=== PATIENT | female | born 1970 | race Caucasian/White ===

== ENCOUNTER → 2017-05-04 | Outpatient (CLI) | payer SELFPAY ==
[~2017-05-04] MED LIST: MECL-124 PO; SCOP1PAT TD
--- NOTE | 2017-05-04 14:21 | Diagnostic Imaging Report ---
INDICATION: Pelvic pain. FINDINGS: The uterus measures 8 x 4.8 x 4.3 cm. The endometrial stripe is 6 mm. There are few scattered calcifications within the endometrial lining. The right ovary measures 1.4 x 1.8 x 2.5 cm. The left ovary measures 3.6 x 1.7 x 1.9 cm. Normal blood flow to both ovaries with multiple follicular cysts bilaterally. No free fluid. IMPRESSION: No abnormalities demonstrated with bilateral follicular cysts with no dominant cyst or free fluid. Dictated by: Dictated on workstation # [id number]
== END ==
LOC: RAD 13:08
PROVIDERS: ATTEND Nurse Practitioner Family
DX: R10.2 Pelvic and perineal pain (principal)
CPT/HCPCS: 76830; 76856

== ENCOUNTER → 2017-06-26 | Outpatient (CLI) | payer OTHER | LOC: CARD 11:20 | PROVIDERS: ATTEND Internal Medicine Cardiovascular Disease | DX: I10 Essential (primary) hypertension (principal) | CPT/HCPCS: 93306 ==

== ENCOUNTER → 2017-07-02 | Outpatient (CLI) | payer OTHER | LOC: CARD 09:45 | PROVIDERS: ATTEND Internal Medicine Cardiovascular Disease | DX: I10 Essential (primary) hypertension (principal) | CPT/HCPCS: 93351 ==

== ENCOUNTER 2017-07-12 10:13 | Outpatient (RCR) | payer OTHER | END 2017-08-18 | disposition home or self-care (01) | LOC: CARD 10:13 | PROVIDERS: ATTEND Physician Assistant | DX: I35.0 Nonrheumatic aortic (valve) stenosis (principal); I10 Essential (primary) hypertension; E78.2 Mixed hyperlipidemia; Z72.0 Tobacco use | CPT/HCPCS: 93225; 93226 ==

== ENCOUNTER 2018-01-09 07:53 | Day surgery (SDC) | payer SELFPAY ==
[~2018-01-09] VITALS: Ht 162.6 cm; Wt 61.2 kg
[2018-01-09] VITALS (12 sets, daily range): BP systolic 105–153; BP diastolic 59–86
--- OUTSIDE RECORDS SUMMARY | 2018-01-09 07:57 | XMS REPORT | Continuity of Care Document ---
Author Author [employer] Organization [facility] Address Unknown Phone Unavailable Care Team Providers Care Riding Instructor Name Role Phone [employer] Unavailable Unavailable Problems Medications Allergies, Adverse Reactions, Alerts Immunizations Results Vital Signs Encounters Location Location Details Encounter Type Encounter Number Reason For Visit Attending Provider ADM Date DC Date Status Source O Active [facility] Procedures Plan of Care Social History Assessment and Plan Family History Advance Directives Functional Status
--- OUTSIDE RECORDS SUMMARY | 2018-01-09 07:57 | XMS REPORT | Encounter Summary ---
Author Author [facility] Organization [facility] Address Unknown Phone Unavailable Care Team Providers Care Music Coordinator Name Role Phone PCP Unavailable Reason for Visit * Reason Comments Financial/Insurance Questions Encounter Details Date Type Department Care Team Description 10/25/2017 Telephone [facility] Haleigh Crowell Financial/ Insurance Cardiovascular Surgeons Questions [address] [place], [place] [id number] Social History Tobacco Use Types Packs/Day Years Used Date Current Every Day Smoker Alcohol Use Drinks/Week oz/Week Comments Yes Sex Assigned at Date Recorded Not on file as of this encounter Miscellaneous Notes * Telephone Encounter - Haleigh Crowell - 10/25/2017 10:30 AM YARD DEMURRAGE CLERK Social Work Note Plan: Patient needing to schedule appointment with Dr. Nelson in [facility] clinic once insurance coverage confirmed. [place] assisting for any CM needs. Intervention: SW requested to contact patient to discuss insurance coverage options for clinic appointments. Patient previously informed CTS RN that she is self-pay and wanted to confirm she was enrolling in the right plan in order to have in-network coverage before scheduling appointment. SW attempted to contact patient to discuss plan options, however, patient did not answer. SW left message requesting a return call. Addendum 11-01-17: SW attempted to contact patient again to address insurance related questions. Patient did not and [place] LMOM requesting return call. Information was also left regarding DAR open enrollment and contact information for [employer] in case patient is enrolling in Marketplace plan. RENO also provided contact number for [facility] office in case patient has specific plan questions and/or springer estimate questions. RENO to continue to follow and assist with any future needs. Haleigh Crowell LMSW [id number] in this encounter Plan of Treatment Not on fileas of this encounter Visit Diagnoses Not on filein this encounter
--- OUTSIDE RECORDS SUMMARY | 2018-01-09 07:57 | XMS REPORT | Clinical Summary ---
Author Author [facility] Organization [facility] Address Unknown Phone Unavailable Care Team Providers Care Bulk Station Agent Name Role Phone PCP Unavailable Source Comments Some departments are not documenting in the electronic medical record. If you do not see the information that you expected, contact Release of Information in the Health Information Management department at [phone] for further assistance in locating additional records.[facility] Allergies No Known Allergies Current Medications Prescription Sig. Disp. Refills Start End Date Status Date metoprolol XL (TOPROL XL) Take 25 mg by mouth Active 25 mg extended release daily. tablet Fuzro-4-RIJ-EPA-Fish Oil Take by mouth three Active (FISH OIL) 1,000 mg (120 times daily. mg-180 mg) cap MULTIVIT-MIN/IRON/FOLIC Take by mouth daily. Active ACID/K (MULTI-DAY PLUS MINERALS PO) lisinopril (PRINIVIL; Take 10 mg by mouth Active ZESTRIL) 10 mg tablet daily. Active Problems Not on file Encounters Date Type Specialty Care Team Description 10/25/2017 Telephone Cardiothoracic Surgery Haleigh Crowell Financial/ Insurance Questions from Last 3 Months Family History Medical History Relation Name Comments Cancer Father Diabetes Paternal Grandfather Relation Name Status Comments Father Paternal Grandfather Social History Tobacco Use Types Packs/Day Years Used Date Current Every Day Smoker Alcohol Use Drinks/Week oz/Week Comments Yes Sex Assigned at Date Recorded Not on file Last Filed Vital Signs Not on file Plan of Treatment Health Maintenance Due Date Last Done Comments PHYSICAL (COMPREHENSIVE) 1977 EXAM PERTUSSIS VACCINE 1981 TETANUS VACCINE 1987 CERVICAL CANCER SCREENING 2000 BREAST CANCER SCREENING 2010 INFLUENZA VACCINE 06/19/2017 Results Not on filefrom Last 3 Months
--- OUTSIDE RECORDS SUMMARY | 2018-01-09 07:57 | XMS REPORT | Continuity of Care Document ---
Author Author [facility] Organization [facility] Address Unknown Phone Unavailable Allergies Active Description Code Type Severity Reaction Onset Reported/Identified Relationship to Patient Clinical Status Yes No Known Drug Allergies [id number] Drug Allergy Unknown N/A 01/16/2014 Medications There is no data. Problems Date Dx Coded Attending Type Code Diagnosis Diagnosed By 01/21/2009 MYLES GRADY DO V74.1 SCREENING EXAMINATION FOR PULMONARY TUBERCULOSIS 01/16/2014 DENITA NORMAN DO Ot 780.4 DIZZINESS AND GIDDINESS 01/29/2014 MYLES GRADY DO 386.11 BENIGN PAROXYSMAL POSITIONAL VERTIGO 05/25/2017 MADLALONSO JOB SETTER HONING Ot R10.2 PELVIC AND PERINEAL PAIN 06/26/2017 ALONSO ACUNA JOB SETTER HONING Ot R10.2 PELVIC AND PERINEAL PAIN 07/02/2017 OLENA ELLIOTT MD Ot I10 ESSENTIAL (PRIMARY) HYPERTENSION 07/13/2017 OLENA ELLIOTT MD Ot I10 ESSENTIAL (PRIMARY) HYPERTENSION 07/13/2017 OLENA ELLIOTT MD Ot I10 ESSENTIAL (PRIMARY) HYPERTENSION 07/13/2017 JOSE RAMON DRAKE Ot E78.2 MIXED HYPERLIPIDEMIA 07/13/2017 JOSE RAMON DRAKE Ot I10 ESSENTIAL (PRIMARY) HYPERTENSION 07/13/2017 JOSE RAMON DRAKE Ot I35.0 NONRHEUMATIC AORTIC (VALVE) STENOSIS 07/13/2017 JOSE RAMON DRAKE Ot Z72.0 TOBACCO USE 08/18/2017 JOSE RAMON DRAKE Ot E78.2 MIXED HYPERLIPIDEMIA 08/18/2017 JOSE RAMON DRAKE Ot I10 ESSENTIAL (PRIMARY) HYPERTENSION 08/18/2017 JOSE RAMON DRAKE Ot I35.0 NONRHEUMATIC AORTIC (VALVE) STENOSIS 08/18/2017 JOSE RAMON DRAKE Ot Z72.0 TOBACCO USE Procedures There is no data. Results There is no data. Encounters ACCT No. Visit Date/Time Discharge Status Pt. Type Provider Facility Loc./Unit Complaint [id number] 08/19/2017 10:00:00 08/19/2017 23:59:59 CLS Preadmit JOSE RAMON DRAKE [facility] CARD AORTIC STNOSIS I35.0 [id number] 07/12/2017 10:13:00 08/18/2017 00:01:00 DIS Outpatient JOSE RAMON DRAKE [facility] CARD AORTIC STNOSIS I35.0 [id number] 07/02/2017 09:45:00 07/02/2017 23:59:59 CLS Outpatient OLENA ELLIOTT MD [facility] CARD I10 [id number] 06/26/2017 11:20:00 06/26/2017 23:59:59 CLS Outpatient OLENA ELLIOTT MD [facility] CARD I10 [id number] 05/04/2017 13:08:00 05/04/2017 23:59:59 CLS Outpatient ALONSO ACUNA JOB SETTER HONING [facility] RAD PELVIC PAIN R10.2 [id number] 01/16/2014 18:59:00 01/16/2014 20:42:00 DIS Emergency DENITA NORMAN DO [facility] ER VERTIGO [id number] 01/29/2014 09:38:00 01/29/2014 23:59:59 CLS Outpatient MYLES GRADY DO
[2018-01-09] MEDS ORDERED: HEParin (CATH LAB) 2,000 ML IV ONE (08:06)
[2018-01-09] MEDS ORDERED: LIDOCAINE 1% INJ 50 ML (XYLOCAINE) VIAL ONE (08:06)
[2018-01-09] MEDS ORDERED: NS IV 1000 ML 1,000 ML ONE (08:06)
[2018-01-09] MEDS ORDERED: NS IV 1000 ML 1,000 ML IV SCH ×2 (08:11→11:28)
--- NOTE | 2018-01-09 08:40 | Diagnostic Imaging Report ---
INDICATION: Hypertension and cardiac palpitation in patient with chest pain and severe aortic stenosis. PA view of the chest is obtained. COMPARISON: No previous study is available for comparison at this time. FINDINGS: Heart size and pulmonary vasculature are within normal limits, and the lungs are clear, bilaterally. IMPRESSION: Unremarkable chest. Dictated by: Dictated on workstation # [id number]
[2018-01-09 08:52] LABS: BILIRUBIN,URINE NEGATIVE (NEGATIVE); CLARITY,URINE CLEAR; COLOR,URINE YELLOW; GLUCOSE, URINE (UA) NEGATIVE (NEGATIVE); KETONES,URINE NEGATIVE (NEGATIVE); LEUKOCYTE ESTERASE ,URINE NEGATIVE (NEGATIVE); NITRITE,URINE NEGATIVE (NEGATIVE); PH,URINE 7 (5-9); PROTEIN,URINE 1+ (NEGATIVE); UROBILINOGEN,URINE NORMAL (NORMAL)
[2018-01-09 09:01] LABS: BACTERIA,URINE NEGATIVE /HPF; WBC,URINE RARE /HPF
[2018-01-09] MEDS ORDERED: LISI10TA2 PO (09:10)
[2018-01-09] MEDS ORDERED: METO-351 PO (09:10)
[2018-01-09] MEDS ORDERED: OMG1KC PO (09:10)
[2018-01-09] MEDS ORDERED: MULT-35 PO (09:10)
[2018-01-09 09:13] LABS: ALANINE AMINOTRANSFERASE 21 U/L (0-55); ALKALINE PHOSPHATASE 51 U/L (40-136); BILIRUBIN,TOTAL 0.5 MG/DL (0.1-1.0); BUN/CREATININE RATIO 16; CARBON DIOXIDE 25 MMOL/L (21-32); CHLORIDE 104 MMOL/L (98-107); CHOLESTEROL 160 MG/DL (< 200); CREATININE SERUM 0.95 MG/DL (0.60-1.30); GFR ESTIMATED > 60; GLUCOSE 90 MG/DL (70-105); HDL CHOLESTEROL 46 MG/DL (40-60); POTASSIUM 4.1 MMOL/L (3.6-5.0); SODIUM 138 MMOL/L (135-145); TOTAL PROTEIN 6.9 GM/DL (6.4-8.2); TRIGLYCERIDES 62 MG/DL (<150); VLDL CHOLESTEROL 12 MG/DL (5-40)
[2018-01-09] MEDS ORDERED: INFLUENZA TRIvalent 2017-2018 0.5 ML/45 MCG SYR IM ONE (09:15)
[2018-01-09] MEDS ORDERED: MIDAZOLAM 5 MG/5 ML (VERSED) VIAL ONE (10:20)
[2018-01-09] MEDS ORDERED: VERAPAMIL 5 MG/2 ML (CALAN) VIAL IV ONE (10:20)
[2018-01-09] MEDS ORDERED: fentaNYL INJECTION 100 MCG/2 ML AMP ONE (10:20)
[2018-01-09] MEDS ORDERED: HEParin 1000 UNIT/ML (10ML VIAL) FOR BOLUS ONE (10:21)
[2018-01-09] MEDS ORDERED: NITROGLYCERIN DRIP 25 MG/D5W 250 ML IV ONE (10:21)
--- NOTE | 2018-01-09 10:47 | Cardiac Procedure Note-CS/ASA ---
Pre-Procedure Note Pre-Op Procedure Note H&P Reviewed The H&P was reviewed, patient examined and no changes noted. Date H&P Reviewed: Jan 09, 2018 Time H&P Reviewed: 10:47 Conscious Sedation Pre-Proced Time Reviewed: 10:47 ASA Class: 3 Airway Mallampati Classification: (akiak appropriate class) I. II. III, IV Lungs Heart ASA score ASA 1: a normal healthy patient ASA 2: a patient with a mild systemic disease (mid diabetes, controlled hypertension, obesity x ASA 3: a patient with a severe systemic disease that limits activity (angina , COPD, prior Myocardial infarction) ASA 4: a patient with an incapacitating disease that is a constant threat to life (CHF, renal failure) ASA 5: a moribund patient not expected to survive 24 hrs. (ruptured aneurysm) ASA 6: a declared brain patient whose organs are being harvested. For emergent operations, add the letter E after the classification Grade 3 Sedation Plan: Analgesia, Amnesia, Plan communicated to team members, Discussed options with patient/fam, Discussed risks with patient/fam Note The patient is an appropriate candidate to undergo the planned procedure, sedation, and anesthesia. The patient immediately re-assessed prior to indication. OLENA ELLIOTT MD Jan 09, 2018 10:47
[2018-01-09 10:58] LABS: HEMOGLOBIN 15.1 G/DL (11.5-16.0); MEAN PLATELET VOLUME 11.5 FL (7.4-10.4); RED BLOOD COUNT 5.31 10^6/uL (4.35-5.85); RED CELL DISTRIBUTION WIDTH 14.5 % (10.0-14.5); WHITE BLOOD COUNT 11.9 10^3/uL (4.3-11.0)
[2018-01-09] MEDS ORDERED: PATIENT MAY USE OWN MEDS, ALL PO SCH (11:30)
--- NOTE | 2018-01-09 11:32 | Discharge Inst-Post CATH ---
Discharge Inst-CATH Post Cardiac Cath D/C Inst Follow Up/Plan Appointment with Dr. Hernández's office in [address] Montes office at [place] [facility] with [facility] CARDIAC CATH DISCHARGE INSTRUCTIONS *Hold Metformin for 48 hours post heart cath. ACTIVITY * Go Home directly and rest. * Limit activity of the leg (or wrist if it was used) for 7 days including aerobics, swimming, jogging, bicycling, etc. * Restrict stair-climbing for 7 days if possible, if not, climb up with your non -cath leg, then bring together on the same step. * Avoid lifting, pushing, pulling or excessive movement of the affected extremity for 7 days. * Customary sexual activity may be resumed after 2 days-use caution not to use a position that strains or causes pain to the affected extremity. * No driving for 24 hours. * NO SMOKING. * Avoid straining for bowel movements for 7 days. * Gentle walking on level ground is allowed. * Returning to work will depend on the type of procedure and the results. Your doctor will discuss this with you. CALL YOUR DOCTOR FOR ANY OF THE FOLLOWING: *If bleeding from the puncture site occurs- Apply gentle pressure to site with clean cloth and call your doctor or EMS. * If a knot or lump forms under the skin, increases in size, or causes pain. * If bruising appears to be worsening or moving further down your leg instead of disappearing. * Temperature above 101 F. CARE OF YOUR GROIN INCISION; * Bruising or purple discoloration of the skin near the puncture site is common. * You may shower only, no bathtub bathing for 5 days. Be careful to avoid slipping as your leg may feel stiff. * If a closure device was used on your femoral artery, please see the attached guide regarding care of the device and your leg. * REMOVE the dressing from your groin the next day after your procedure in the shower. CARE OF YOUR WRIST INCISION; * Bruising or purple discoloration of the skin near the puncture site is common. * You may shower. * DO NOT submerge wrist. * Remove dressing in 24 hours. OLENA HERNÁNDEZ MD Jan 09, 2018 11:32
--- NOTE | 2018-01-09 11:38 | Cardiac Cath Report ---
Cardiac Cath Report Physician (s)/Local Hazmat Driver (s) Physician OLENA ELLIOTT MD Pre-Procedure Diagnosis Pre-Procedure Diagnosis: Aortic valve stenosis Post-Procedure Note Procedure Start Date: Jan 09, 2018 Name of Procedure: Left heart catheterization Aortic root angiogram Findings/Procedure Note PROCEDURE NOTE: After explaining the procedure to the patient, all pros and cons were explained, all questions were answered. The patient signed the consent and then she was placed on the cardiac catheterization laboratory. The patient was placed on the cardiac catheterization laboratory. Groin was prepped SL fashion local anesthesia was used. 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 Subsequently I decided to proceed with femoral. 5 Welsh sheath was placed in the right femoral artery Lesli right and left catheter were used to access the coronary system. I was able to cross the valve with a stork wire Lesli right catheter was advanced to the left ventricular cavity, patient had significant irregularity and arrhythmia. Left ventriculogram was done Aortic root angiogram was done At the end of the procedure the sheath was removed. 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 Severe to critical aortic valve stenosis with peak to peak gradient of 100 mmHg 2. Mild coronary artery disease nonobstructive disease 3. Normal aortic root and ascending aorta DISCUSSION AND RECOMMENDATION: Continue with medical therapy, referral for evaluation for TAVR Anesthesia Type: Conscious Sedation Estimated blood loss (mL): 15 ml Contrast Amount: 70 ml Total Radiation Dose: 104 mGy Post-Procedure Diagnosis Post-operative diagnosis: Aortic valve stenosis Coronary artery disease Hypertension Hyperlipidemia OLENA ELLIOTT MD Jan 09, 2018 11:37
== END 2018-01-09 15:56 | disposition home or self-care (01) ==
LOC: CATH 07:53 → SURG 12:04 → CATH 15:56
PROVIDERS: ATTEND Internal Medicine Cardiovascular Disease
DX: I35.0 Nonrheumatic aortic (valve) stenosis (principal); I25.10 Atherosclerotic heart disease of native coronary artery without angina pectoris; I10 Essential (primary) hypertension; E78.2 Mixed hyperlipidemia; F17.210 Nicotine dependence, cigarettes, uncomplicated; Z79.899 Other long term (current) drug therapy; Z11.2 Encounter for screening for other bacterial diseases
CPT/HCPCS: 36415; 71045; 80053; 80061; 81000; 84703; 85027; 85610; 85730; 87081; 93005; 93458; 93567

== ENCOUNTER 2019-01-07 18:19 | Emergency (ER) | payer SELFPAY ==
[~2019-01-07] VITALS: Ht 162.6 cm; Wt 61.2 kg
[~2019-01-07 18:19] MED LIST changes: +LISI10TA2 PO; +METO-351 PO; +MULT-35 PO; +OMG1KC PO
--- OUTSIDE RECORDS SUMMARY | 2019-01-07 18:23 | XMS REPORT ---
Author Author AOLNSO ACUNA [facility] Address [address] [place] [address] Care Team Providers Care Water Filterer Helper Name Role Phone ALONSO ACUNA Unavailable PROBLEMS Type Condition ICD9-CM Code DIR52-YO Code Onset Dates Condition Status SNOMED Code Problem Chest discomfort R07.89 Active 671262667 Problem Irregular menses N92.6 Active 30468681 Problem Chronic fatigue R53.82 Active 27523232 Problem Murmur R01.1 Active 08131182 Problem H/O aortic valve replacement Z95.2 Active 5806973037326 Problem Vitamin D deficiency E55.9 Active 68141919 Problem Essential hypertension I10 Active 56900310 Problem Hyperlipidemia, unspecified hyperlipidemia type E78.5 Active 17638977 Problem Pelvic pain R10.2 Active 89902229 Problem Systolic murmur R01.1 Active 85633582 ALLERGIES Substance Reaction Event Type Date Status Hydrocodone-Acetaminophen nausea and vomiting Drug Allergy Feb, Active ENCOUNTERS Encounter Location Date Diagnosis [place] [address] [address] March, Essential hypertension I10 [facility] [address] [place] [address] Feb, H/O aortic valve replacement Z95.2 ; Hospital discharge follow-up Z09 and Essential hypertension I10 [facility] [address] [address] Dec, [facility] [address] [place] [id number] [place] [address] Apr, Essential hypertension I10 [facility] [address] [address] Apr, Chest pain, unspecified type R07.9 ; Hyperlipidemia, unspecified hyperlipidemia type E78.5 and Essential hypertension I10 [place] [address] [address] Apr, Essential hypertension I10 ; Systolic murmur R01.1 ; Vitamin D deficiency E55.9 and Pelvic pain R10.2 [place] [address] [place] [address] March, Essential hypertension I10 ; Hyperlipidemia, unspecified hyperlipidemia type E78.5 ; Systolic murmur R01.1 ; Chest pain, unspecified type R07.9 and Tobacco use Z72.0 [place] [address] [place] [id number] [place] [address] Feb, [place] [address] [place] [id number] [place] [address] Feb, Chest discomfort R07.89 ; Irregular menses N92.6 ; Murmur R01.1 and Chronic fatigue R53.82 [place] [address] [place] [address] Feb, Chest discomfort R07.89 ; Murmur R01.1 ; Chronic fatigue R53.82 and Irregular menses N92.6 [place] [address] [place] [address] Feb, [place] [address] [address] Feb, [place] [address] [place] [address] Feb, [place] [address] [place] [address] Jan, [place] [address] [place] [address] Jan, IMMUNIZATIONS No Known Immunizations SOCIAL HISTORY Never Assessed REASON FOR VISIT Hospital f/u[facility] follow up valve replacement-AHarrymtessieRN PLAN OF CARE Activity Details Follow Up 1 Year, prn Reason: VITAL SIGNS Height 64 in 2018-02-26 Weight 125.7 lbs 2018-02-26 Temperature 97.9 degrees Fahrenheit 2018-02-26 Heart Rate 64 bpm 2018-02-26 Respiratory Rate 18 2018-02-26 BMI 21.57 kg/m2 2018-02-26 Blood pressure systolic 120 mmHg 2018-02-26 Blood pressure diastolic 82 mmHg 2018-02-26 MEDICATIONS Medication Instructions Dosage Frequency Start Date End Date Duration Status Aspirin 81 81 MG Orally Once a day 1 tablet 24h Active Multivitamin Adult - Active Atorvastatin Calcium 40 MG Orally Once a day 1 tablet 24h Active Coreg 3.125 MG Orally 2 times a day 1 tablet 12h Active RESULTS No Results PROCEDURES No Known procedures INSTRUCTIONS MEDICATIONS ADMINISTERED No Known Medications MEDICAL (GENERAL) HISTORY Type Description Date Medical History Aortic stenosis s/p valve replacement Surgical History section x2 Surgical History dilatation and curettage Surgical History Fallopian Tube removal r/t ectopic Surgical History Cardiac Valve Replacement, due to aortic stenosis 01/2018 Hospitalization History Surgery(s)/Childbirth(s) only
--- OUTSIDE RECORDS SUMMARY | 2019-01-07 18:23 | XMS REPORT ---
Author Author ALONSO ACUNA [facility] Address [address] [place] [address] Care Team Providers Care Keysmith Name Role Phone CAITLINBienvenido ALONSO Unavailable PROBLEMS Type Condition ICD9-CM Code [id number] Code Onset Dates Condition Status SNOMED Code Problem Chest discomfort R07.89 Active 231710446 Problem Irregular menses N92.6 Active 79544843 Problem Chronic fatigue R53.82 Active 94359944 Problem Murmur R01.1 Active 86882137 Problem H/O aortic valve replacement Z95.2 Active 7006499457650 Problem Vitamin D deficiency E55.9 Active 42081224 Problem Essential hypertension I10 Active 56082475 Problem Hyperlipidemia, unspecified hyperlipidemia type E78.5 Active 39909644 Problem Pelvic pain R10.2 Active 99952262 Problem Systolic murmur R01.1 Active 40713527 ALLERGIES No Information ENCOUNTERS Encounter Location Date Diagnosis [place] [address] [address] March, Essential hypertension I10 [facility] [address] [place] [id number] [place] [address] Feb, H/O aortic valve replacement Z95.2 ; Hospital discharge follow-up Z09 and Essential hypertension I10 [facility] [id number] [place] [address] Dec, [place] [address] [address] Apr, Essential hypertension I10 [place] [address] [place] [address] [id number] [place] [address] Apr, Chest pain, unspecified type R07.9 ; Hyperlipidemia, unspecified hyperlipidemia type E78.5 and Essential hypertension I10 [place] [address] [place] [address] Apr, Essential hypertension I10 ; Systolic murmur R01.1 ; Vitamin D deficiency E55.9 and Pelvic pain R10.2 [place] [address] [place] [id number] [place] [address] March, Essential hypertension I10 ; Hyperlipidemia, unspecified hyperlipidemia type E78.5 ; Systolic murmur R01.1 ; Chest pain, unspecified type R07.9 and Tobacco use Z72.0 [place] [address] [place] [id number] [place] [address] Feb, [place] [address] [place] [id number] [place] [address] Feb, Chest discomfort R07.89 ; Irregular menses N92.6 ; Murmur R01.1 and Chronic fatigue R53.82 [place] [address] [place] [id number] [place] [address] Feb, Chest discomfort R07.89 ; Murmur R01.1 ; Chronic fatigue R53.82 and Irregular menses N92.6 [place] [address] [place] [id number] [place] [address] Feb, [place] [address] [place] [id number] [place] [address] Feb, [place] [address] [place] [address] [id number] [place] [address] Feb, [place] [address] [place] [address] [id number] [place] [address] Jan, [place] [address] [place] [address] [id number] [place] [address] Jan, IMMUNIZATIONS No Known Immunizations SOCIAL HISTORY Never Assessed REASON FOR VISIT requesting return call PLAN OF CARE VITAL SIGNS MEDICATIONS Unknown Medications RESULTS No Results PROCEDURES No Known procedures INSTRUCTIONS MEDICATIONS ADMINISTERED No Known Medications MEDICAL (GENERAL) HISTORY Type Description Date Medical History Aortic stenosis s/p valve replacement Surgical History section x2 Surgical History dilatation and curettage Surgical History Fallopian Tube removal r/t ectopic Surgical History Cardiac Valve Replacement, due to aortic stenosis 01/2018 Hospitalization History Surgery(s)/Childbirth(s) only
--- OUTSIDE RECORDS SUMMARY | 2019-01-07 18:23 | XMS REPORT | Clinical Summary ---
Author Author [facility] Organization [facility] Address Unknown Phone Unavailable Care Team Providers Care Rn Ccu Name Role Phone PCP Unavailable Source Comments Some departments are not documenting in the electronic medical record. If you do not see the information that you expected, contact Release of Information in the Health Information Management department at [phone] for further assistance in locating additional records.[facility] Allergies No Known Allergies Medications End Date Status Medication Sig Dispensed Refills Start Date Active metoprolol XL (TOPROL XL) Take 25 mg by 0 25 mg extended release mouth daily. tablet Active Quius-9-HJQ-EPA-Fish Oil Take by 0 (FISH OIL) 1,000 mg (120 mouth three mg-180 mg) cap times daily. Active MULTIVIT-MIN/IRON/FOLIC Take by 0 ACID/K (MULTI-DAY PLUS mouth daily. MINERALS PO) Active lisinopril (PRINIVIL; Take 10 mg by 0 ZESTRIL) 10 mg tablet mouth daily. Active Problems Not on file Family History Medical History Relation Name Comments Cancer Father Diabetes Paternal Grandfather Relation Name Status Comments Father Paternal Grandfather Social History Date Tobacco Use Types Packs/Day Years Used Current Every Day Smoker Alcohol Use Drinks/Week oz/Week Comments Yes Sex Assigned at Date Recorded Not on file Industry Job Start Date Occupation Not on file Not on file Not on file Travel End Travel History Travel Start No recent travel history available. Last Filed Vital Signs Not on file Plan of Treatment Health Maintenance Due Date Last Done Comments PHYSICAL (COMPREHENSIVE) 1977 EXAM HIV SCREENING 1985 DTAP/TDAP VACCINES ( - 1988 Tdap) CERVICAL CANCER SCREENING 2000 BREAST CANCER SCREENING 2010 INFLUENZA VACCINE 06/19/2018 Results Not on filefrom Last 3 Months Advance Directives Patient has advance care planning documents on file. For more information, please contact: [facility] [address] [place] [address]
--- OUTSIDE RECORDS SUMMARY | 2019-01-07 18:23 | XMS REPORT ---
Author Author ALONSO ACUNA [facility] Address [address] [place] [address] Care Team Providers Care Bank Vault Custodian Name Role Phone KALPANA ALONSO Unavailable PROBLEMS Type Condition ICD9-CM Code [id number] Code Onset Dates Condition Status SNOMED Code Problem Chest discomfort R07.89 Active 267195629 Problem Irregular menses N92.6 Active 37641163 Problem Chronic fatigue R53.82 Active 32678359 Problem Murmur R01.1 Active 41637384 Problem H/O aortic valve replacement Z95.2 Active 7412976592593 Problem Vitamin D deficiency E55.9 Active 97326689 Problem Essential hypertension I10 Active 09693435 Problem Hyperlipidemia, unspecified hyperlipidemia type E78.5 Active 59281411 Problem Pelvic pain R10.2 Active 04721443 Problem Systolic murmur R01.1 Active 49038682 ALLERGIES No Information ENCOUNTERS Encounter Location Date Diagnosis [place] [address] [address] March, Essential hypertension I10 [facility] [place] [address] [place] [id number] [place] [address] Feb, H/O aortic valve replacement Z95.2 ; Hospital discharge follow-up Z09 and Essential hypertension I10 [facility] [place] [address] [place] [id number] [place] [address] Dec, [place] [address] [address] Apr, Essential hypertension I10 [place] [address] [place] [id number] [place] [address] Apr, Chest pain, unspecified type R07.9 ; Hyperlipidemia, unspecified hyperlipidemia type E78.5 and Essential hypertension I10 [place] [id number] [place] [address] Apr, Essential hypertension I10 ; Systolic murmur R01.1 ; Vitamin D deficiency E55.9 and Pelvic pain R10.2 [place] [address] [place] [id number] [place] [address] March, Essential hypertension I10 ; Hyperlipidemia, unspecified hyperlipidemia type E78.5 ; Systolic murmur R01.1 ; Chest pain, unspecified type R07.9 and Tobacco use Z72.0 [place] [address] [place] [id number] [place] [address] Feb, [place] [address] [place] [id number] [place] [address] Feb, Chest discomfort R07.89 ; Irregular menses N92.6 ; Murmur R01.1 and Chronic fatigue R53.82 [place] [address] [place] [id number] [place] [address] Feb, Chest discomfort R07.89 ; Murmur R01.1 ; Chronic fatigue R53.82 and Irregular menses N92.6 [place] [address] [place] [id number] [place] [address] Feb, [place] [address] [place] [id number] [place] [address] Feb, [place] [address] [place] [id number] [place] [address] Feb, [place] [address] [place] [id number] [place] [address] Jan, [place] [address] [place] [id number] [place] [address] Jan, IMMUNIZATIONS No Known Immunizations SOCIAL HISTORY Never Assessed REASON FOR VISIT Medication refill request PLAN OF CARE VITAL SIGNS MEDICATIONS Medication Instructions Dosage Frequency Start Date End Date Duration Status Coreg 3.125 MG Orally 2 times a day 1 tablet 12h 30 days Active Atorvastatin Calcium 40 mg Orally Once a day 1 tablet 24h 30 days Active RESULTS No Results PROCEDURES No Known [...]
--- OUTSIDE RECORDS SUMMARY | 2019-01-07 18:23 | XMS REPORT ---
Author Author OLENA ELLIOTT Organization [facility] Address [address] [place] [address] Care Team Providers Care String Winding Machine Operator Name Role Phone EARL OLENA Unavailable PROBLEMS Type Condition ICD9-CM Code ZPQ07-CF Code Onset Dates Condition Status SNOMED Code Problem Murmur R01.1 Active 50151297 Problem Chronic fatigue R53.82 Active 97677309 Problem Chest discomfort R07.89 Active 806514449 Problem Vitamin D deficiency E55.9 Active 19741204 Problem Pelvic pain R10.2 Active 80870508 Problem Essential hypertension I10 Active 89140627 Problem Irregular menses N92.6 Active 68726759 Problem Systolic murmur R01.1 Active 99704709 Problem Hyperlipidemia, unspecified hyperlipidemia type E78.5 Active 67503853 ALLERGIES Substance Reaction Event Type Date Status Hydrocodone-Acetaminophen nausea and vomiting Drug Allergy March, Active ENCOUNTERS Encounter Location Date Diagnosis [place] [address] [address] Dec, [place] [address] [address] Apr, Essential hypertension I10 [place] [address] [address] Apr, Chest pain, unspecified type R07.9 ; Hyperlipidemia, unspecified hyperlipidemia type E78.5 and Essential hypertension I10 [place] [address] [address] Apr, Essential hypertension I10 ; Systolic murmur R01.1 ; Vitamin D deficiency E55.9 and Pelvic pain R10.2 [place] [address] [address] March, Essential hypertension I10 ; Hyperlipidemia, unspecified hyperlipidemia type E78.5 ; Systolic murmur R01.1 ; Chest pain, unspecified type R07.9 and Tobacco use Z72.0 [place] [address] [place] [id number] [place] [address] Feb, [place] [address] [place] [id number] [place] [address] Feb, Chest discomfort R07.89 ; Irregular menses N92.6 ; Murmur R01.1 and Chronic fatigue R53.82 [place] [address] [place] [id number] [place] [address] Feb, Chest discomfort R07.89 ; Murmur R01.1 ; Chronic fatigue R53.82 and Irregular menses N92.6 [place] [address] [place] [id number] [place] [address] Feb, [place] [address] [place] [id number] [place] [address]- [address] Feb, [place] [address] [place] [id number] [place] [address] 6[address] Feb, [place] [address] [place] [id number] [place] [address] Jan, [place] [address] [place] [id number] [place] [address] Jan, IMMUNIZATIONS No Known Immunizations SOCIAL HISTORY Never Assessed REASON FOR VISIT Chest Discomfort-- states last weekend she had an episode that lasted 10 minutes of her right side feeling numb, her right side of face was numb- [facility], states she knows the Systolic was in the 180 range, but does not remember the Diastolic -- Lucille Cruz RN PLAN OF CARE Activity Details Follow Up 2 Weeks Reason: VITAL SIGNS Height 64 in 2017-04-06 Weight 125 lbs 2017-04-06 Heart Rate 62 bpm 2017-04-06 Respiratory Rate 18 2017-04-06 BMI 21.45 kg/m2 2017-04-06 Blood pressure systolic 190 mmHg 2017-04-06 Blood pressure diastolic 138 mmHg 2017-04-06 MEDICATIONS Medication Instructions Dosage Frequency Start Date End Date Duration Status Lisinopril 10 mg Orally Once a day 1 tablet 24h March, 30 day(s) Active Vitamin D (Ergocalciferol) 93426 UNIT Orally once a week for 12 weeks 1 capsule Feb, Active RESULTS Name Result Date Reference Range Echo 2D Echo 2D 2017-07-02 Stress Echo 2017-07-02 PROCEDURES No Known procedures INSTRUCTIONS MEDICATIONS ADMINISTERED No Known Medications MEDICAL (GENERAL) HISTORY Type Description Date Medical History Denies PMH Surgical History section x2 Surgical History dilatation and curettage Surgical History Fallopian Tube removal r/t ectopic Hospitalization History Surgery(s)/Childbirth(s) only
--- OUTSIDE RECORDS SUMMARY | 2019-01-07 18:24 | XMS REPORT | Continuity of Care Document ---
Author Author [facility] Address Unknown Phone Unavailable Allergies Active Description Code Type Severity Reaction Onset Reported/Identified Relationship to Patient Clinical Status Yes No Known Drug Allergies [id number] Drug Allergy Unknown N/A 01/16/2014 Medications There is no data. Problems Date Dx Coded Attending Type Code Diagnosis Diagnosed By 01/21/2009 MYLSE GRADY DO V74.1 SCREENING EXAMINATION FOR PULMONARY TUBERCULOSIS 01/16/2014 DENITA NORMAN DO Ot 780.4 DIZZINESS AND GIDDINESS 01/29/2014 MYLES GRADY DO 386.11 BENIGN PAROXYSMAL POSITIONAL VERTIGO 05/25/2017 MADALONSO Faria SERVICE PROVIDER Ot R10.2 PELVIC AND PERINEAL PAIN 06/26/2017 ALONSO ACUNAP Ot R10.2 PELVIC AND PERINEAL PAIN 07/02/2017 [...] JOSE RAMON DRAKE Ot Z72.0 TOBACCO USE 01/09/2018 OLENA ELLIOTT MD Ot E78.2 MIXED HYPERLIPIDEMIA 01/09/2018 OLENA ELLIOTT MD Ot F17.210 NICOTINE DEPENDENCE, CIGARETTES, UNCOMPL 01/09/2018 OLENA ELLIOTT MD Ot I10 ESSENTIAL (PRIMARY) HYPERTENSION 01/09/2018 OLENA ELLIOTT MD Ot I25.10 ATHSCL HEART DISEASE OF [place] CORONARY 01/09/2018 OLENA ELLIOTT MD Ot I35.0 NONRHEUMATIC AORTIC (VALVE) STENOSIS 01/09/2018 OLENA ELLIOTT MD Ot Z11.2 ENCOUNTER FOR SCREENING FOR OTHER BACTER 01/09/2018 OLENA ELLIOTT MD Ot Z79.899 OTHER SNF (CURRENT) DRUG THERAPY 01/10/2018 OLENA ELLIOTT MD Ot E78.2 MIXED HYPERLIPIDEMIA 01/10/2018 OLENA ELLIOTT MD Ot F17.210 NICOTINE DEPENDENCE, CIGARETTES, UNCOMPL 01/10/2018 OLENA ELLIOTT MD Ot I10 ESSENTIAL (PRIMARY) HYPERTENSION 01/10/2018 OLENA ELLIOTT MD Ot I25.10 ATHSCL HEART DISEASE OF [place] CORONARY 01/10/2018 OLENA ELLIOTT MD Ot I35.0 NONRHEUMATIC AORTIC (VALVE) STENOSIS 01/10/2018 OLENA ELLIOTT MD Ot Z79.899 OTHER BUSINESS SERVICES MANAGER (CURRENT) DRUG THERAPY 01/10/2018 OLENA ELLIOTT MD Ot E78.2 MIXED HYPERLIPIDEMIA 01/10/2018 OLENA ELLIOTT MD Ot F17.210 NICOTINE DEPENDENCE, CIGARETTES, UNCOMPL 01/10/2018 OLENA ELLIOTT MD Ot I10 ESSENTIAL (PRIMARY) HYPERTENSION 01/10/2018 OLENA ELLIOTT MD Ot I25.10 ATHSCL HEART DISEASE OF [place] CORONARY 01/10/2018 OLENA ELLIOTT MD Ot I35.0 NONRHEUMATIC AORTIC (VALVE) STENOSIS 01/10/2018 OLENA ELLIOTT MD Ot Z11.2 ENCOUNTER FOR SCREENING FOR OTHER BACTER 01/10/2018 OLENA ELLIOTT MD Ot Z79.899 OTHER BUSINESS SERVICES MANAGER (CURRENT) DRUG THERAPY 01/07/2019 OLENA ELLIOTT MD Ot I10 ESSENTIAL (PRIMARY) HYPERTENSION 01/07/2019 OLENA ELLIOTT MD Ot I10 ESSENTIAL (PRIMARY) HYPERTENSION 01/07/2019 ALONSO ACUNA SERVICE PROVIDER Ot R10.2 PELVIC AND PERINEAL PAIN 01/07/2019 JOSE RAMON DRAKE Ot E78.2 MIXED HYPERLIPIDEMIA 01/07/2019 JOSE RAMON DRAKE Ot I10 ESSENTIAL (PRIMARY) HYPERTENSION 01/07/2019 JOSE RAMON DRAKE Ot I35.0 NONRHEUMATIC AORTIC (VALVE) STENOSIS 01/07/2019 JOSE RAMON DRAKE Ot Z72.0 TOBACCO USE Procedures There is no data. Results Test Result Range Urine beta human chorionic gonadotropin (hCG) measurement - 01/09/18 08:15 Urine beta human chorionic gonadotropin (hCG) measurement NEGATIVE NEGATIVE Complete urinalysis with reflex to culture - 01/09/18 08:35 Urine color determination YELLOW NRG Urine clarity determination CLEAR NRG Urine pH measurement by test strip 7 5-9 Specific gravity of urine by test strip 1.010 1.016- 1.022 Urine protein assay by test strip, semi-quantitative 1+ NEGATIVE Urine glucose detection by automated test strip NEGATIVE NEGATIVE Erythrocytes detection in urine sediment by light microscopy NEGATIVE NEGATIVE Urine ketones detection by automated test strip NEGATIVE NEGATIVE Urine nitrite detection by test strip NEGATIVE NEGATIVE Urine total bilirubin detection by test strip NEGATIVE NEGATIVE Urine urobilinogen measurement by automated test strip (mass/volume) NORMAL NORMAL Urine leukocyte esterase detection by dipstick NEGATIVE NEGATIVE Automated urine sediment erythrocyte count by microscopy (number/high power field) NONE NRG Automated urine sediment leukocyte count by microscopy (number/high power field ) RARE NRG Bacteria detection in urine sediment by light microscopy NEGATIVE NRG Squamous epithelial cells detection in urine sediment by light microscopy 2-5 NRG Crystals detection in urine sediment by light microscopy NONE NRG Casts detection in urine sediment by light microscopy NONE NRG Mucus detection in urine sediment by light microscopy NEGATIVE NRG Complete urinalysis with reflex to culture NO NRG PT panel in platelet poor plasma by coagulation assay - 01/09/18 08:35 Prothrombin time (PT) in platelet poor plasma by coagulation assay 13.0 s 12.2-14.7 INR in platelet poor plasma or blood by coagulation assay 1.0 0.8-1.4 Activated partial thromboplastin time (aPTT) in platelet poor plasma bycoagulation assay - 01/09/18 08:35 Activated partial thromboplastin time (aPTT) in platelet poor plasma bycoagulation assay 26 s 24-35 Comprehensive metabolic panel - 01/09/18 08:35 Serum or plasma sodium measurement (moles/volume) 138 mmol/L 135-145 Serum or plasma potassium measurement (moles/volume) 4.1 mmol/L 3.6-5.0 Serum or plasma chloride measurement (moles/volume) 104 mmol/L 98-107 Carbon dioxide 25 mmol/L 21-32 Serum or plasma anion gap determination (moles/volume) 9 mmol/L 5-14 Serum or plasma urea nitrogen measurement (mass/volume) 15 mg/dL 7-18 Serum or plasma creatinine measurement (mass/volume) 0.95 mg/dL 0.60-1.30 Serum or plasma urea nitrogen/creatinine mass ratio 16 NRG Serum or plasma creatinine measurement with calculation of estimated glomerular filtration rate > NRG Serum or plasma glucose measurement (mass/volume) 90 mg/dL 70-105 Serum or plasma calcium measurement (mass/volume) 9.0 mg/dL 8.5-10.1 Serum or plasma total bilirubin measurement (mass/volume) 0.5 mg/dL 0.1-1.0 Serum or plasma alkaline phosphatase measurement (enzymatic activity/volume) 51 U/L 40-136 Serum or plasma aspartate aminotransferase measurement (enzymatic activity/ volume) 22 U/L 5-34 Serum or plasma alanine aminotransferase measurement (enzymatic activity/volume ) 21 U/L 0-55 Serum or plasma protein measurement (mass/volume) 6.9 g/dL 6.4-8.2 Serum or plasma albumin measurement (mass/volume) 4.0 g/dL 3.2-4.5 Lipid 1996 panel - 01/09/18 08:35 Serum or plasma triglyceride measurement (mass/volume) 62 mg/dL <150 Serum or plasma cholesterol measurement (mass/volume) 160 mg/dL < 200 Serum or plasma cholesterol in HDL measurement (mass/volume) 46 mg/ dL 40-60 Cholesterol in LDL [mass/volume] in serum or plasma by direct assay 105 mg/dL 1-129 Serum or plasma cholesterol in VLDL measurement (mass/volume) 12 mg/ dL 5-40 Automated blood complete blood count (hemogram) panel - 01/09/18 08:35 Blood leukocytes automated count (number/volume) 11.9 10*3/uL 4.3-11.0 Blood erythrocytes automated count (number/volume) 5.31 10*6/uL 4.35-5.85 Venous blood hemoglobin measurement (mass/volume) 15.1 g/dL 11.5-16.0 Blood hematocrit (volume fraction) 44 % 35-52 Automated erythrocyte mean corpuscular volume 83 [foz_us] 80-99 Automated erythrocyte mean corpuscular hemoglobin (mass per erythrocyte) 28 pg 25-34 Automated erythrocyte mean corpuscular hemoglobin concentration measurement ( mass/volume) 34 g/dL 32-36 Automated erythrocyte distribution width ratio 14.5 % 10.0-14.5 Automated blood platelet count (count/volume) 363 10*3/uL 130-400 Automated blood platelet mean volume measurement 11.5 [foz_us] 7.4-10.4 Methicillin resistant Staphylococcus aureus (MRSA) screening culture - 08:35 Methicillin resistant Staphylococcus aureus (MRSA) screening culture NEG NRG Encounters ACCT No. Visit Date/Time Discharge Status Pt. Type Provider Facility Loc./Unit Complaint [id number] 01/29/2014 09:38:00 01/29/2014 23:59:59 CLS Outpatient MYLES GRDAY DO [id number] 01/09/2018 07:53:00 01/09/2018 15:56:00 DIS Outpatient OLENA ELLIOTT MD [facility] [id number] 08/19/2017 10:00:00 08/19/2017 23:59:59 CLS Preadmit JOSE RAMON DRAKE [facility] CARD AORTIC STNOSIS I35.0 [id number] 07/12/2017 10:13:00 08/18/2017 00:01:00 DIS Outpatient JOSE RAMON DRAKE [facility] CARD AORTIC STNOSIS I35.0 [id number] 07/02/2017 09:45:00 07/02/2017 23:59:59 CLS Outpatient OLENA ELLIOTT MD [facility] CARD I10 [id number] 06/26/2017 11:20:00 06/26/2017 23:59:59 CLS Outpatient OLENA ELLIOTT MD [facility] CARD I10 [id number] 05/04/2017 13:08:00 05/04/2017 23:59:59 CLS Outpatient ALONSO ACUNA [facility] RAD PELVIC PAIN R10.2 [id number] 01/16/2014 18:59:00 01/16/2014 20:42:00 DIS Emergency DENITA NORMAN DO [facility] ER VERTIGO [id number] 01/07/2019 18:20:00 ACT Emergency LINCOLN URENA, TITUS Jackson [facility] ER HIGH BLOOD PRESSURE,NUMBNESS
--- NOTE | 2019-01-07 18:37 | NUR ---
PT AMB TO ROOM #8 FROM TRIAGE W/O DIFFICULTY. A&OX4. C/O LT SIDED WEAKNESS, NUMBNESS, AND TINGLING. PT REPORTS HORSE BREAKER SHE WAS COOKING DINNER WHEN HER LT SIDED SYMPTOMS BEGAN. PT REPORTS AFTER SYMPTOMS BEGAN SHE TOOK HER BP WHICH WAS ELEVATED.
--- NOTE | 2019-01-07 18:44 | NUR ---
INITIAL NIH PREFORMED BY DR. LINCOLN MD. NIH SCORE: 0
[2019-01-07 18:46] LABS: BASOPHILS # (AUTO) 0.1 10^3/uL (0.0-0.1); BASOPHILS % (AUTO) 1 % (0-10); EOSINOPHILS # (AUTO) 0.9 10^3/uL (0.0-0.3); EOSINOPHILS % (AUTO) 7 % (0-10); HEMATOCRIT 51 % (35-52); HEMOGLOBIN 17.2 G/DL (11.5-16.0); LYMPHOCYTES # (AUTO) 3.4 X 10^3 (1.0-4.0); LYMPHOCYTES % (AUTO) 26 % (12-44); MEAN CORPUSCULAR HEMOGLOBIN 26 PG (25-34); MEAN CORPUSCULAR HGB CONC 34 G/DL (32-36); MEAN CORPUSCULAR VOLUME 76 FL (80-99); MEAN PLATELET VOLUME 11.2 FL (7.4-10.4); MONOCYTES # (AUTO) 1.7 X 10^3 (0.0-1.0); MONOCYTES % (AUTO) 13 % (0-12); NEUTROPHILS # (AUTO) 7.1 X 10^3 (1.8-7.8); NEUTROPHILS % (AUTO) 54 % (42-75); PLATELET COUNT 724 10^3/uL (130-400); WHITE BLOOD COUNT 13.1 10^3/uL (4.3-11.0)
[2019-01-07] MEDS ORDERED: LABETALOL HCL 20 MG/4 ML VIAL IV ONE (19:00)
[2019-01-07 19:07] LABS: ALANINE AMINOTRANSFERASE 28 U/L (0-55); ALBUMIN 4.8 GM/DL (3.2-4.5); ALKALINE PHOSPHATASE 84 U/L (40-136); BILIRUBIN,TOTAL 0.3 MG/DL (0.1-1.0); BUN/CREATININE RATIO 14; CALCIUM 10.4 MG/DL (8.5-10.1); CARBON DIOXIDE 27 MMOL/L (21-32); CHLORIDE 102 MMOL/L (98-107); CREATININE SERUM 1.06 MG/DL (0.60-1.30); GFR ESTIMATED 55; GLUCOSE 95 MG/DL (70-105); POTASSIUM 3.8 MMOL/L (3.6-5.0); SODIUM 140 MMOL/L (135-145); TOTAL PROTEIN 7.8 GM/DL (6.4-8.2)
--- NOTE | 2019-01-07 19:07 | Diagnostic Imaging Report ---
PROCEDURE: CT head wo r/o stroke. TECHNIQUE: Multiple contiguous axial images were obtained through the brain without the use of intravenous contrast. INDICATION: Left-sided numbness. Correlation is made with prior head CT from 01/16/2014. FINDINGS: The ventricles and sulci are within normal limits. No sulcal effacement, midline shift, or hemorrhage is detected. Cisterns are patent. Visualized paranasal sinuses are clear apart from some mucosal thickening of ethmoid air cells. IMPRESSION: No acute intracranial process is detected. Results were called to the emergency department prior to this dictation. Dictated by: Dictated on workstation # [id number]
--- NOTE | 2019-01-07 19:07 | Diagnostic Imaging Report ---
INDICATION: Stroke protocol. Time of exam: 6:49 PM Correlation is made with prior study from 01/09/2018. Changes of median sternotomy are noted. The lungs are clear. No infiltrates are seen. No effusion or pneumothorax is detected. IMPRESSION: No acute cardiopulmonary process is detected. Dictated by: Dictated on workstation # [id number]
[2019-01-07] MEDS ORDERED: NS 100 ML (IVPB) BAG IV ONE (19:15)
[2019-01-07] MEDS ORDERED: RECEIVED CONTRAST (Hold Metformin) IV SCH (19:15)
[2019-01-07] MEDS ORDERED: IOHEXOL 350 MG/ML 100 ML (OMNIPAQUE 350) VIAL IV ONE (19:15)
[2019-01-07 19:16] LABS: FIBRIN DEGRADATION PRODUCTS < 0.27 UG/ML (0.00-0.49); PARTIAL THROMBOPLASTIN TIME 33 SEC (24-35)
--- NOTE | 2019-01-07 19:35 | Diagnostic Imaging Report ---
PROCEDURE: CT angiography of the head and CT angiography of the neck with and without contrast. TECHNIQUE: Contiguous noncontrast images were obtained from the skull base through the vertex. After intravenous contrast administration, helical CT angiography of the neck was performed. Source data was reformatted into multiple MIP projections. Delayed post contrast acquisition was also obtained. INDICATION: Headache and hypertension. FINDINGS: There is emphysematous disease in the lung apices. There is normal branching pattern of the thoracic aorta. The common carotid arteries, internal carotid arteries and basilar arteries are widely patent. There is no dissection, stenosis or occlusion. The distal internal carotid arteries and basilar artery are patent. There are no proximal intracranial branch occlusions, vascular malformations or aneurysms. The visualized intracranial structures are unremarkable. The sinuses and mastoid air cells are clear. The nasopharyngeal, oropharyngeal, hypopharyngeal tissues are symmetrical without mass effect. The parotid, submandibular, and thyroid glands are normal in appearance. There is no pathologically enlarged adenopathy or mass in the neck. There are mild degenerative changes in the cervical spine. IMPRESSION: Unremarkable CTA head and neck. Specifically, there is no dissection, stenosis or occlusion. There are no proximal branch occlusion, vascular malformations, or aneurysms. Dictated by: Dictated on workstation # [id number]
[2019-01-07 20:04] LABS: BILIRUBIN,URINE NEGATIVE (NEGATIVE); CLARITY,URINE CLEAR; COLOR,URINE YELLOW; GLUCOSE, URINE (UA) NEGATIVE (NEGATIVE); KETONES,URINE NEGATIVE (NEGATIVE); LEUKOCYTE ESTERASE ,URINE NEGATIVE (NEGATIVE); NITRITE,URINE NEGATIVE (NEGATIVE); PH,URINE 7 (5-9); PROTEIN,URINE NEGATIVE (NEGATIVE); UROBILINOGEN,URINE NORMAL (NORMAL)
[2019-01-07 20:12] LABS: BACTERIA,URINE NEGATIVE /HPF; RBC,URINE RARE /HPF; WBC,URINE RARE /HPF
--- NOTE | 2019-01-07 20:33 | ED Neurological Problem ---
General Chief Complaint: Neuro-Stroke Like Symptoms Stated Complaint: HIGH BLOOD PRESSURE,NUMBNESS Nursing Triage Note: pt arrived pov with c/o high blood pressure and left side numbness. Pt states her left hand et leg are tingly right now. Nursing Sepsis Screen: No Definite Risk Source: patient Exam Limitations: no limitations History of Present Illness Date Seen by Provider: Jan 07, 2019 Time Seen by Provider: 18:30 Initial Comments This 40-year-old woman presents to the emergency room with complaints of sudden onset of left-sided numbness including her face, left upper extremity, and left lower extremity. She also checked her blood pressure at the time of onset and found it to be 155/105 followed by second measurement of 177/108. Patient does have hypertension for which she takes carvedilol. She did take her carvedilol this morning. Patient has a bovine heart valve replacement that was performed by Dr. Bo at [facility]. She takes a full aspirin daily but no anticoagulants. She took both her carvedilol and aspirin today. Allergies and Home Medications Allergies Coded Allergies: No Known Drug Allergies (Unverified , 01/16/14) Home Medications Lisinopril 10 Mg Tablet, 10 MG PO DAILY, (Reported) Metoprolol Succinate 25 Mg Tab.er.24h, 25 MG PO DAILY, (Reported) Multivitamin 1 Each Tablet, 1 TAB PO DAILY, (Reported) [place] 3 Polyunsat Fatty Acids 1,000 Mg Cap, 1,000 MG PO TID, (Reported) Patient Home Medication List Home Medication List Reviewed: Yes Review of Systems Review of Systems Constitutional: no symptoms reported Eyes: No Symptoms Reported Ears, Nose, Mouth, Throat: no symptoms reported Respiratory: no symptoms reported Cardiovascular: see HPI Gastrointestinal: no symptoms reported Genitourinary: no symptoms reported : No Musculoskeletal: no symptoms reported Skin: no symptoms reported Psychiatric/Neurological: See HPI Endocrine: No Symptoms Reported Hematologic/Lymphatic: No Symptoms Reported Past Xnxhkdj-Ejkplg-Vfbuav Hx Patient Social History Alcohol Use: Occasionally Uses Number of Drinks Today: 0 Recreational Drug Use: No Smoking Status: Current Everyday Smoker Type Used: Cigarettes 2nd Hand Smoke Exposure: Yes Recent Foreign Travel: No Contact w/Someone Who Travel: No Recent Infectious Disease Expo: No Past Medical History Surgeries: Yes (TUBAL ) Open Heart Surgery, Valve Replacement (bovine Trifecta Tissue Heart Valve) Respiratory: Yes COPD Cardiac: Yes (AORTIC STENOSIS) Hypertension Neurological: No 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 0.0oz. 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, no motor/sensory deficits, alert, normal mood/affect, oriented x 3 Crainal Nerves: normal hearing, normal speech, PERRL Coordination/Gait: normal finger to nose (normal heel to peñaloza), normal gait Motor/Sensory: no motor deficit, no sensory deficit Skin: normal color, warm/dry Stroke NIH Stroke Scale Assessment Level of Consciousness: 0=Alert (0), Level of Consciousness-Questions: 0= Answers both month/age (0), LOC Commands: 0=Performs both tasks (0), Visual Núñez: 0=No visual loss (0), Facial Movement (Facial Paresis): 0=Normal symmetrical mnt (0), Motor Function-Arms Right: 0=No drift (0), Motor Function- Arms Left: 0=No drift (0), Motor Function-Legs Right: 0=No drift (0), Motor Function-Legs Left: 0=No drift (0), Limb Ataxia: 0=Absent (0), Sensory: 0=Normal :no loss (0), Best Language: 0=No aphasia (0), Dysarthria: 0=Normal (0), Extinction & Inattention: 0=No abnormality (0), Total: 0 Progress/Results/Core Measures Results/Orders Lab Results Laboratory Tests Test 01/07/19 18:41 01/07/19 19:57 Range/Units White Blood Count 13.1 H 4.3-11.0 10^3/uL Red Blood Count 6.61 H 4.35-5.85 10^6/uL Hemoglobin 17.2 H 11.5-16.0 G/DL Hematocrit 51 35-52 % Mean Corpuscular Volume 76 L 80-99 FL Mean Corpuscular Hemoglobin 26 25-34 PG Mean Corpuscular Hemoglobin Concent 34 32-36 G/DL Red Cell Distribution Width 19.0 H 10.0-14.5 % Platelet Count 724 H 130-400 10^3/uL Mean Platelet Volume 11.2 H 7.4-10.4 FL Neutrophils (%) (Auto) 54 42-75 % Lymphocytes (%) (Auto) 26 12-44 % Monocytes (%) (Auto) 13 H 0-12 % Eosinophils (%) (Auto) 7 0-10 % Basophils (%) (Auto) 1 0-10 % Neutrophils # (Auto) 7.1 1.8-7.8 X 10^3 Lymphocytes # (Auto) 3.4 1.0-4.0 X 10^3 Monocytes # (Auto) 1.7 H 0.0-1.0 X 10^3 Eosinophils # (Auto) 0.9 H 0.0-0.3 10^3/uL Basophils # (Auto) 0.1 0.0-0.1 10^3/uL Prothrombin Time 13.0 12.2-14.7 SEC INR Comment 1.0 0.8-1.4 Activated Partial Thromboplast Time 33 24-35 SEC D-Dimer < 0.27 0.00-0.49 UG/ML Sodium Level 140 135-145 MMOL/L Potassium Level 3.8 3.6-5.0 MMOL/L Chloride Level 102 98-107 MMOL/L Carbon Dioxide Level 27 21-32 MMOL/L Anion Gap 11 5-14 MMOL/L Blood Urea Nitrogen 15 7-18 MG/DL Creatinine 1.06 0.60-1.30 MG/DL Estimat Glomerular Filtration Rate 55 BUN/Creatinine Ratio 14 Glucose Level 95 70-105 MG/DL Calcium Level 10.4 H 8.5-10.1 MG/DL Corrected Calcium 8.5-10.1 MG/DL Total Bilirubin 0.3 0.1-1.0 MG/DL Aspartate Amino Transf (AST/SGOT) 28 5-34 U/L Alanine Aminotransferase (ALT/SGPT) 28 0-55 U/L Alkaline Phosphatase 84 40-136 U/L Troponin I < 0.028 <0.028 NG/ML Total Protein 7.8 6.4-8.2 GM/DL Albumin 4.8 H 3.2-4.5 GM/DL Urine Color YELLOW Urine Clarity CLEAR Urine pH 7 5-9 Urine Specific [place] 1.005 L 1.016-1.022 Urine Protein NEGATIVE NEGATIVE Urine Glucose (UA) NEGATIVE NEGATIVE Urine Ketones NEGATIVE NEGATIVE Urine Nitrite NEGATIVE NEGATIVE Urine Bilirubin NEGATIVE NEGATIVE Urine Urobilinogen NORMAL NORMAL MG/DL Urine Leukocyte Esterase NEGATIVE NEGATIVE Urine RBC (Auto) NEGATIVE NEGATIVE Urine RBC RARE /HPF Urine WBC RARE /HPF Urine Crystals NONE /LPF Urine Bacteria NEGATIVE /HPF Urine Casts NONE /LPF Urine Mucus NEGATIVE /LPF Urine Culture Indicated NO My Orders Orders - TITUS STARK MD I-Stat Bedside Testing (01/07/19 18:47) Labetalol Injection (Normodyne Injection (01/07/19 19:00) Ct Angio Head/Neck (01/07/19 18:57) Iohexol Injection (Omnipaque 350 Mg/Ml 1 (01/07/19 19:15) Contrast Received (Contrast Received) (01/07/19 19:15) Ns (Ivpb) (Sodium Chloride 0.9% Ivpb Bag (01/07/19 19:15) Clopidogrel Tablet (Plavix Tablet) (01/07/19 20:45) Medications Given in ED Current Medications Medications Dose Ordered Sig/Berna Route Start Time Stop Time Status Last Admin Dose Admin Clopidogrel Bisulfate 75 mg ONCE ONCE PO 01/07/19 20:45 01/07/19 20:46 DC 01/07/19 20:50 75 MG Iohexol 75 ml ONCE ONCE IV 01/07/19 19:15 01/07/19 19:16 DC 01/07/19 19:07 75 ML Labetalol HCl 10 mg ONCE ONCE IV 01/07/19 19:00 01/07/19 19:01 DC 01/07/19 19:30 10 MG Sodium Chloride 100 ml ONCE ONCE IV 01/07/19 19:15 01/07/19 19:16 DC 01/07/19 19:07 80 ML Vital Signs/I&O 01/07/19 18:23 Temp 98.1 Pulse 66 Resp 18 B/P (MAP) 196/90 (125) Pulse Ox 98 O2 Delivery Room Air Blood Pressure Mean: 125 iStat Bedside Lab Testing Sodium (Na): 140.00 Potassium (K): 4.50 Chloride (CI): 102.00 TCO2: 28.00 Glucose (Glu): 90.00 Urea Nitrogen (BUN)/Urea: 19.00 Creatinine (Crea): 0.90 Anion Gap*: 16.00 FSBG Bedside Testing Finger Stick Blood Glucose: 90 Blood Glucose Action Taken: READING FROM I-STAT. NOTIFIED DR. STARK Progress Progress Note #1: Time: 21:59 Progress Note Patient was seen and examined promptly upon check into the ER. Stroke activation was paged. 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 Symptoms were improving by the time of arrival. Imaging studies including CT without contrast and CT angiogram of the head and neck were unremarkable. Patient had a significant hypertension and was treated with labetalol 10 mg by IV route with a modest improvement in blood pressure. Symptoms seemed to resolve with the exception of some minimal residual numbness in the fingers. Numbness was more of a sensation rather than a measurable deficit. Case was discussed with Dr. Cheng, stroke urologist at [facility], at 20: 22. She recommended patient be admitted for observation for 24 hours with completion of stroke workup to include echocardiogram and MRI. Unfortunately, no beds are available at this facility at this time. Patient is agreeable to transfer. Transfer was accepted by Dr. Graham at [facility]. Dr. Cheng recommended adding Plavix to aspirin. Plavix was ordered after patient passed her dysphagia screen. Dr. Cheng felt an observation was appropriate as a small stroke was a strong possibility. She recommended permissive hypertension. Labetalol had initially been given as symptoms were thought possibly related to malignant hypertension. Patient's blood pressure is stable at this time. We are presently awaiting confirmation of bed assignment at [facility] and will make transfer arrangements via EMS once that is known. Progress Note #2: Time: 22:50 Progress Note Patient remained stable. At this time she has minimal sensation of numbness in her fingers but actually has intact sensation to touch. EMS is now here to transfer patient. Blood pressure is 148/90. Initial ECG Impression Date: Jan 07, 2019 Initial ECG Impression Time: 19:35 Initial ECG Rate: 56 Initial ECG Rhythm: Normal Sinus Initial ECG Intervals: Normal Initial ECG Impression: Normal Comment Normal sinus rhythm with no ST elevation or depression. No abnormal intervals or axis deviation. Diagnostic Imaging Diagonstic Imaging: CT Plain Films/CT/US/NM/MRI: head Comments CT head viewed by me and report reviewed. See report below: NAME: ALPHONSO ENGLISH [facility] REC#: [id number] PT STATUS: REG ER : 1970 PHYSICIAN: GIO CALZADA ADMIT DATE: 01/07/19/ER Signed Date of Exam: 01/07/19 CT HEAD WO-R/O STROKE PROCEDURE: CT head wo r/o stroke. TECHNIQUE: Multiple contiguous axial images were obtained through the brain without the use of intravenous contrast. INDICATION: Left-sided numbness. Correlation is made with prior head CT from 01/16/2014. FINDINGS: The ventricles and sulci are within normal limits. No sulcal effacement, midline shift, or hemorrhage is detected. Cisterns are patent. Visualized paranasal sinuses are clear apart from some mucosal thickening of ethmoid air cells. IMPRESSION: No acute intracranial process is detected. Results were called to the emergency department prior to this dictation. Dictated by: Dictated on workstation # [id number] Dict: 01/07/191902 Trans: 01/07/191928 Interpreted by: EPI JAIN MD Electronically signed by: EPI JAIN MD 01/07/191928 Diagonstic Imaging: CT Plain Films/CT/US/NM/MRI: other (angiogram head and neck) Comments NAME: ALPHONSO ENGLISH [facility] REC#: [id number] PT STATUS: REG ER : 1970 PHYSICIAN: TITUS STARK MD ADMIT DATE: 01/07/19/ER Signed Date of Exam: 01/07/19 CT ANGIO HEAD/NECK PROCEDURE: CT angiography of the head and CT angiography of the neck with and without contrast. TECHNIQUE: Contiguous noncontrast images were obtained from the skull base through the vertex. After intravenous contrast administration, helical CT angiography of the neck was performed. Source data was reformatted into multiple MIP projections. Delayed post contrast acquisition was also obtained. INDICATION: Headache and hypertension. FINDINGS: There is emphysematous disease in the lung apices. There is normal branching pattern of the thoracic aorta. The common carotid arteries, internal carotid arteries and basilar arteries are widely patent. There is no dissection, stenosis or occlusion. The distal internal carotid arteries and basilar artery are patent. There are no proximal intracranial branch occlusions, vascular malformations or aneurysms. The visualized intracranial structures are unremarkable. The sinuses and mastoid air cells are clear. The nasopharyngeal, oropharyngeal, hypopharyngeal tissues are symmetrical without mass effect. The parotid, submandibular, and thyroid glands are normal in appearance. There is no pathologically enlarged adenopathy or mass in the neck. There are mild degenerative changes in the cervical spine. IMPRESSION: Unremarkable CTA head and neck. Specifically, there is no dissection, stenosis or occlusion. There are no proximal branch occlusion, vascular malformations, or aneurysms. Dictated by: Dictated on workstation # [id number] Dict: 01/07/191927 Trans: 01/07/191935 Interpreted by: KYLIE CLARK MD Electronically signed by: KYLIE CLARK MD 01/07/191935 Reviewed: Reviewed by Me Diagonstic Imaging: Xray Plain Films/CT/US/NM/MRI: chest Comments Chest x-ray viewed by me and report reviewed. See report below: NAME: ALPHONSO ENGLISH [facility] REC#: [id number] PT STATUS: REG ER : 1970 PHYSICIAN: GIO CALZADA ADMIT DATE: 01/07/19/ER Signed Date of Exam: 01/07/19 CHEST 1 VIEW, AP/PA ONLY INDICATION: Stroke protocol. Time of exam: 6:49 PM Correlation is made with prior study from 01/09/2018. Changes of median sternotomy are noted. The lungs are clear. No infiltrates are seen. No effusion or pneumothorax is detected. IMPRESSION: No acute cardiopulmonary process is detected. Dictated by: Dictated on workstation # [id number] Dict: 01/07/191901 Trans: 01/07/191928 Interpreted by: EPI JAIN MD Electronically signed by: EPI JAIN MD 01/07/191928 Departure Impression Primary Impression: Left sided numbness Additional Impression: Hypertensive emergency Disposition: XFER SHT-TRM HOSP Condition: Improved Transfer Time Spoke to Accepting Phy: 20:40 Transfer Progress Notes Transfer discussed with Dr. Graham, hospitalist at [facility], transfer was accepted. Transfer Time: 22:50 Transfer Facility: [place], [place] Method of Transfer: EMS Departure-Patient Inst. Referrals: [facility] (PCP/Family) Primary Care Physician TITUS STARK MD Jan 07, 2019 20:33
[2019-01-07] MEDS ORDERED: CLOPIDOGREL 75 MG (PLAVIX) TABLET PO ONE (20:45)
--- NOTE | 2019-01-07 22:45 | NUR ---
REPORT GIVEN TO SAVANNAH VIDES FROM JUAN JOSÉ JAEGER. NO QUESTIONS OR CONCERNS VOICED. Addendum: 01/08/19 at 0329 by DIANE ROOM #[id number]
[2019-01-07 22:54] VITALS: BP 148/90
== END 2019-01-07 22:54 | disposition short-term general hospital (02) ==
LOC: EDUNIT# 18:19 → ER 18:20
DX: R20.0 Anesthesia of skin (principal); I16.1 Hypertensive emergency; I10 Essential (primary) hypertension; J44.9 Chronic obstructive pulmonary disease, unspecified; F17.210 Nicotine dependence, cigarettes, uncomplicated; Z95.2 Presence of prosthetic heart valve; Z98.51 Tubal ligation status; Z87.19 Personal history of other diseases of the digestive system
CPT/HCPCS: 36415; 70450; 70496; 70498; 71045; 80053; 81000; 84484; 85025; 85379; 85610; 85730; 93005; 93041; 96374

== ENCOUNTER 2020-04-09 08:35 | Day surgery (SDC) | payer SELFPAY ==
[~2020-04-09] VITALS: Ht 162.6 cm; Wt 68.2 kg
[2020-04-09] MEDS ORDERED: NS IV 1000 ML 1,000 ML IV STA (08:38)
[2020-04-09] MEDS ORDERED: fentaNYL INJECTION 100 MCG/2 ML AMP IVP ONE (08:45)
[2020-04-09] MEDS ORDERED: MIDAZOLAM 2 MG/2 ML (VERSED) VIAL IVP ONE (08:45)
[2020-04-09] MEDS ORDERED: LIDOCAINE 1% INJ 20 ML 20 ML VIAL INJ ONE (08:45)
[2020-04-09 09:00] VITALS: BP 143/83
[2020-04-09 09:22] LABS: BASOPHILS # (AUTO) 0.1 10^3/uL (0.0-0.1); BASOPHILS % (AUTO) 1 % (0-10); EOSINOPHILS % (AUTO) 8 % (0-10); HEMATOCRIT 52 % (35-52); HEMOGLOBIN 17.8 G/DL (11.5-16.0); LYMPHOCYTES # (AUTO) 2.7 X 10^3 (1.0-4.0); LYMPHOCYTES % (AUTO) 21 % (12-44); MEAN CORPUSCULAR HEMOGLOBIN 27 PG (25-34); MEAN CORPUSCULAR HGB CONC 34 G/DL (32-36); MEAN CORPUSCULAR VOLUME 80 FL (80-99); MEAN PLATELET VOLUME 11.4 FL (7.4-10.4); MONOCYTES # (AUTO) 1.3 X 10^3 (0.0-1.0); MONOCYTES % (AUTO) 10 % (0-12); NEUTROPHILS # (AUTO) 8.1 X 10^3 (1.8-7.8); NEUTROPHILS % (AUTO) 61 % (42-75); PLATELET COUNT 811 10^3/uL (130-400); RED CELL DISTRIBUTION WIDTH 17.9 % (10.0-14.5); WHITE BLOOD COUNT 13.3 10^3/uL (4.3-11.0)
[2020-04-09 09:36] LABS: PROTHROMBIN TIME PATIENT 13.4 SEC (12.2-14.7)
[2020-04-09 10:00] LABS: ANISOCYTOSIS SLIGHT; BAND NEUTROPHILS 0 %; BASOPHILS % (MANUAL) 1 %; EOSINOPHILS % (MANUAL) 8 %; LYMPHOCYTES % (MANUAL) 30 %; MICROCYTOSIS SLIGHT; MONOCYTES % (MANUAL) 5 %; NEUTROPHILS % (MANUAL) 56 %
--- OUTSIDE RECORDS SUMMARY | 2020-04-09 10:18 | XMS REPORT | Clinical Summary ---
Author Author [facility] Organization [facility] Address Unknown Phone Unavailable Care Team Providers Care Dean Of Men Name Role Phone PCP Unavailable Source Comments Some departments are not documenting in the electronic medical record. If you d o not see the information that you expected, contact Release of Information in [facility] Information Management department at [phone] for further assistan ce in locating additional records.[facility] Allergies No Known Allergies Medications End Date Status Medication Sig Dispensed Refills Start Date Active metoprolol XL (TOPROL XL) Take 25 mg by 0 25 mg extended release mouth daily. tablet Active Gwene-4-WUE-EPA-Fish Oil Take by 0 (FISH OIL) 1,000 [...] Packs/Day Years Used Current Every Day Smoker Drinks/Week oz/Week Comments Alcohol Use Yes Sex Assigned at Date Recorded Not on file Industry Job Start Date Occupation Not on file Not on file Not on file Travel End Travel History Travel Start No recent travel history available. 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
--- OUTSIDE RECORDS SUMMARY | 2020-04-09 10:19 | XMS REPORT ---
Author Author Tatum Rice Doctor Organization [facility] Address Unknown Phone Unavailable Care Team Providers Care Natural Sciences Manager Name Role Phone Migration, Doctor Unavailable Unavailable PROBLEMS Type Condition ICD9-CM Code [id number] Code Onset Dates Condition S tatus SNOMED Code Problem Chronic fatigue R53.82 Active 5270 2003 Problem Irregular menses N92.6 Active 801 54062 Problem Hyperlipidemia, unspecified hyperlipidemia type E7 8.5 Active 61241512 Problem H/O aortic valve replacement Z95.2 A ctive 1566378549982 Problem Chest discomfort R07.89 Active 279 166450 Problem TIA (transient ischemic attack) G45.9 Active 823868161 Problem Murmur R01.1 Active 20624481 Problem Essential hypertension I10 Active 71043938 Problem Systolic murmur R01.1 Active 3157 4009 Problem Pelvic pain R10.2 Active 54894365 Problem Vitamin D deficiency E55.9 Active 74322760 ALLERGIES No Information ENCOUNTERS Encounter Location Date Diagnosis [place] [address] [place] [id number] [place] [phone] Jan, Essential hypertension I10 ; Hyperlipidemia, unspecified hyperlipidemia type E78.5 and TIA (transient ischemic attack) G45.9 [place] [address] [place] [id number] [place] [phone] March, Essential hypertension I10 [facility] [address] [place] [address] [id number] [place] [phone] Feb, H/O aortic valve replacement Z95.2 ; Hospital discharge follow-up Z09 and Essential hypertension I10 [place] [address] [place] [id number] [place] [address] Dec, [place] [id number] [place] [id number] [place] [address] Apr, Essential hypertension I10 [place] [address] [place] [id number] [place] [address] 09 Apr, 2017 Chest pain, unspecified type R07.9 ; Hyperlipidemia, unspecified hyperlipidemia type E78.5 and Essential hypertension I10 [place] [address] [address] 07 Apr, 2017 Essential hypertension I10 ; Systolic murmur R01.1 ; Vitamin D deficiency E55.9 and Pelvic pain R10.2 [place] [address] [address] March, Essential hypertension I10 ; Hyperlipidemia, unspecified hyperlipidemia type E78.5 ; Systolic murmur R01.1 ; Chest pain, unspecified type R07.9 and Tobacco use Z72.0 [place] [address] [address] Feb, [place] [address] [address] Feb, Chest discomfort R07.89 ; Ir regular menses N92.6 ; Murmur R01.1 and Chronic fatigue R53.82 [place] [address] [address] Feb, Chest discomfort R07.89 ; Mu rmur R01.1 ; Chronic fatigue R53.82 and Irregular menses N92.6 [place] [address] [address] Feb, [place] [address] [address] Feb, [place] [address] [address] Feb, [place] [address] [address] Jan, [place] [address] [address] Jan, IMMUNIZATIONS No Known Immunizations SOCIAL HISTORY Never Assessed REASON FOR VISIT [facility] PLAN OF CARE VITAL SIGNS MEDICATIONS Medication Instructions Dosage Frequency Start Date End Date Duration S chris meclizine 25 mg take 1 Tablet by Oral route as needed 3 times per day PRN Jan, Active Scopolamine Base by transdermal route Jan, Active RESULTS No Results PROCEDURES No Known procedures INSTRUCTIONS MEDICATIONS ADMINISTERED No Known Medications MEDICAL (GENERAL) HISTORY Type Description Date Medical History Aortic stenosis s/p valve replacement Medical History TIA Surgical History section x2 Surgical History dilatation and curettage Surgical History Fallopian Tube removal r/t ectopic pregn mary kate Surgical History Cardiac Valve Replacement, due to aortic stenosis 01/2018 Hospitalization History Surgery(s)/Childbirth(s) only Hospitalization History TIA 01/07/2019
--- OUTSIDE RECORDS SUMMARY | 2020-04-09 10:19 | XMS REPORT ---
Author Author Tatum ACUNA Organization [facility] Address [address] [place] [address] Care Team Providers Care Executive Recruiter Name Role Phone CAITLINBienvenido ALONSO Unavailable PROBLEMS Type Condition ICD9-CM Code [id number] Code Onset Dates Condition S tatus SNOMED Code Problem Chronic fatigue R53.82 Active 5270 2003 Problem Irregular menses N92.6 Active 801 52425 Problem Hyperlipidemia, unspecified hyperlipidemia type E7 8.5 Active 75993523 Problem H/O aortic valve replacement Z95.2 A ctive 5812473385854 Problem Chest discomfort R07.89 Active 279 113365 Problem TIA (transient ischemic attack) G45.9 Active 484998963 Problem Murmur R01.1 Active 47918784 Problem Essential hypertension I10 Active 31314530 Problem Systolic murmur R01.1 Active 3157 4009 Problem Pelvic pain R10.2 Active 84718503 Problem Vitamin D deficiency E55.9 Active 49301200 ALLERGIES No Information ENCOUNTERS Encounter Location Date Diagnosis [facility] [address] [facility] [id number] [place] [address] Dec, Viral upper respiratory trac t infection J06.9 and Essential hypertension I10 [facility] [address] [place] [id number] [place] [address] Jun, Pain of right heel M79.671 [facility] [address] [address] Jan, Essential hypertension I10 ; Hyperlipide rocael, unspecified hyperlipidemia type E78.5 and TIA (transient ischemic attack) G45.9 [facility] [address] [address] March, Essential hypertension I10 [facility] [address] [address] Feb, H/O aortic valve replacement Z95.2 ; Hos pital discharge follow-up Z09 and Essential hypertension I10 [place] [address] [address] Dec, [place] [address] [address] Apr, Essential hypertension I10 [place] [address] [address] 09 Apr, 2017 Chest pain, unspecified type R07.9 ; Hyp erlipidemia, unspecified hyperlipidemia type E78.5 and Essential hypertension I10 [place] [address] [address] Apr, Essential hypertension I10 ; Systolic mu rmur R01.1 ; Vitamin D deficiency E55.9 and Pelvic pain R10.2 [place] [address] [address] March, Essential hypertension I10 ; Hyperlipide rocael, unspecified hyperlipidemia type E78.5 ; Systolic murmur R01.1 ; Chest pain, unspecified type R07.9 and Tobacco use Z72.0 [place] [address] [address] Feb, [place] [address] [address] Feb, Chest discomfort R07.89 ; Irregular mens es N92.6 ; Murmur R01.1 and Chronic fatigue R53.82 [place] [address] [address] Feb, Chest discomfort R07.89 ; Murmur R01.1 ; Chronic fatigue R53.82 and Irregular menses N92.6 [place] [address] [address] Feb, [place] [address] [address] Feb, [facility] [address] [facility] [id number] [place] [address] Feb, [facility] [address] [id number] [place] [address] Jan, [facility] [address] [id number] [place] [address] Jan, IMMUNIZATIONS No Known Immunizations SOCIAL HISTORY Never Assessed REASON FOR VISIT PLAN OF CARE VITAL SIGNS Height 64 in 2014-01-29 Weight 121.3 lbs 2014-01-29 Temperature 96.8 degrees Fahrenheit 2014-01-29 Heart Rate 60 bpm 2014-01-29 Respiratory Rate 18 2014-01-29 Blood pressure systolic 142 mmHg 2014-01-29 Blood pressure diastolic 68 mmHg 2014-01-29 MEDICATIONS No Known Medications RESULTS No Results PROCEDURES No Known [...]
--- OUTSIDE RECORDS SUMMARY | 2020-04-09 10:19 | XMS REPORT ---
Author Author Tatum Rice Doctor Organization [facility] Address Unknown Phone Unavailable Care Team Providers Care Reproductive Surgeon Name Role Phone Migration, Doctor Unavailable Unavailable PROBLEMS Type Condition ICD9-CM Code LDB18-SQ Code Onset Dates Condition S tatus SNOMED Code Problem Chronic fatigue R53.82 Active 5270 2003 Problem Irregular menses N92.6 Active 801 41495 Problem Hyperlipidemia, unspecified hyperlipidemia type E7 8.5 Active 90632832 Problem H/O aortic valve replacement Z95.2 A ctive 7502161861880 Problem Chest discomfort R07.89 Active 279 756868 Problem TIA (transient ischemic attack) G45.9 Active 816529933 Problem Murmur R01.1 Active 44770631 Problem Essential hypertension I10 Active 02270001 Problem Systolic murmur R01.1 Active 3157 4009 Problem Pelvic pain R10.2 Active 73715424 Problem Vitamin D deficiency E55.9 Active 48370580 ALLERGIES No Information ENCOUNTERS Encounter Location Date Diagnosis [place] [address] [place] [id number] [place] [phone] Jan, Essential hypertension I10 ; Hyperlipidemia, unspecified hyperlipidemia type E78.5 and TIA (transient ischemic attack) G45.9 [place] [address] [place] [id number] [place] [phone] March, Essential hypertension I10 [facility] [address] [place] [id number] [place] [phone] Feb, H/O aortic valve replacement Z95.2 ; Hospital discharge follow-up Z09 and Essential hypertension I10 [place] [address] [place] [id number] [place] [phone] Dec, [place] [address] [place] [id number] [place] [phone] Apr, Essential hypertension I10 [place] [address] [place] [id number] [place] [phone] 09 Apr, 2017 Chest pain, unspecified type R07.9 ; Hyperlipidemia, unspecified hyperlipidemia type E78.5 and Essential hypertension I10 [place] [address] [phone] 07 Apr, 2017 Essential hypertension I10 ; Systolic murmur R01.1 ; Vitamin D deficiency E55.9 and Pelvic pain R10.2 [place] [address] [address] March, Essential hypertension I10 ; Hyperlipidemia, unspecified hyperlipidemia type E78.5 ; Systolic murmur R01.1 ; Chest pain, unspecified type R07.9 and Tobacco use Z72.0 [place] [address] [address] Feb, [place] [address] [address] Feb, Chest discomfort R07.89 ; Ir regular menses N92.6 ; Murmur R01.1 and Chronic fatigue R53.82 [place] [address] [address] Feb, Chest discomfort R07.89 ; Mu rmur R01.1 ; Chronic fatigue R53.82 and Irregular menses N92.6 [place] [address] [address] Feb, [place] [address] [address] Feb, [place] [address] [address] Feb, [place] [address] [address] Jan, [place] [address] [address] Jan, IMMUNIZATIONS No Known Immunizations SOCIAL HISTORY Never Assessed REASON FOR VISIT [facility] PLAN OF CARE VITAL SIGNS MEDICATIONS No Known Medications RESULTS No Results [...]
--- OUTSIDE RECORDS SUMMARY | 2020-04-09 10:19 | XMS REPORT ---
Author Author Tatum CLEMENT Organization [facility] Address [address] [place] [address] Care Team Providers Care Supervisor Travel Information Center Name Role Phone KIM CLEMENT Unavailable PROBLEMS Type Condition ICD9-CM Code GJP20-FY Code Onset Dates Condition S tatus SNOMED Code Problem Chronic fatigue R53.82 Active 5270 2003 Problem Irregular menses N92.6 Active 801 53686 Problem Hyperlipidemia, unspecified hyperlipidemia type E7 8.5 Active 53772072 Problem H/O aortic valve replacement Z95.2 A ctive 1640747845834 Problem Chest discomfort R07.89 Active 279 760035 Problem TIA (transient ischemic attack) G45.9 Active 307919890 Problem Murmur R01.1 Active 38244447 Problem Essential hypertension I10 Active 28373563 Problem Systolic murmur R01.1 Active 3157 4009 Problem Pelvic pain R10.2 Active 54446489 Problem Vitamin D deficiency E55.9 Active 93984595 ALLERGIES Substance Reaction Event Type Date Status Hydrocodone-Acetaminophen nausea and vomiting Drug Allergy Jan, Active ENCOUNTERS Encounter Location Date Diagnosis [facility] [address] [place] [phone] Jan, Essential hypertension I10 ; Hyperlipidemia, unspecified hyperlipidemia type E78.5 and TIA (transient ischemic attack) G45.9 [facility] [address] [facility] [id number] [address] [place] [phone] March, Essential hypertension I10 [facility] [address] [place] [id number] [place] [phone] Feb, H/O aortic valve replacement Z95.2 ; Hospital discharge follow-up Z09 and Essential hypertension I10 [facility] [address] [facility] [id number] [address] [place] [phone] Dec, [place] [address] [place] [address] Apr, Essential hypertension I10 [place] [address] [address] 09 Apr, 2017 Chest pain, unspecified type R07.9 ; Hyperlipidemia, unspecified hyperlipidemia type E78.5 and Essential hypertension I10 [place] [address] [address] Apr, Essential hypertension I10 ; Systolic murmur R01.1 ; Vitamin D deficiency E55.9 and Pelvic pain R10.2 [place] [address] [address] March, Essential hypertension I10 ; Hyperlipidemia, unspecified hyperlipidemia type E78.5 ; Systolic murmur R01.1 ; Chest pain, unspecified type R07.9 and Tobacco use Z72.0 [place] [address] [address] Feb, [place] [address] [address] Feb, Chest discomfort R07.89 ; Ir regular menses N92.6 ; Murmur R01.1 and Chronic fatigue R53.82 [place] [address] [address] Feb, Chest discomfort R07.89 ; Mu rmur R01.1 ; Chronic fatigue R53.82 and Irregular menses N92.6 [place] [address] [place] [id number] [address] [place] [phone] Feb, [place] [address] [address] Feb, [place] [address] [address] Feb, [place] [address] [address] Jan, [facility] [address] [facility] [id number] [address] [place] [address] Jan, IMMUNIZATIONS No Known Immunizations SOCIAL HISTORY Never Assessed REASON FOR VISIT Hospital f/u-MOODY hook, pt was in the ER on the 01/07/2019 for a TIA. denies a ny issues right now PLAN OF CARE Activity Details Follow Up 6 Months Reason: VITAL SIGNS Height 64 in 2019-01-21 Weight 145 lbs 2019-01-21 Temperature 97.6 degrees Fahrenheit 2019-01-21 Heart Rate 72 bpm 2019-01-21 Respiratory Rate 18 2019-01-21 Oximetry on room air:96 % 2019-01-21 BMI 24.89 kg/m2 2019-01-21 Blood pressure systolic 122 mmHg 2019-01-21 Blood pressure diastolic 80 mmHg 2019-01-21 MEDICATIONS Medication Instructions Dosage Frequency Start Date End Date Duration S tatus Multivitamin Adult - Act gigi Aspirin 81 81 MG Orally Once a day 1 tablet 24h Active Coreg 3.125 mg Orally 2 times a day 1 tablet 12h 30 Active Atorvastatin Calcium 40 mg Orally Once [...]
[2020-04-09 10:25] LABS: ABSOLUTE RETIC # 61 10e9/L (24-90); RETICULOCYTE % 0.93 % (0.50-2.40)
[2020-04-09 10:45] VITALS: BP 157/81
[2020-04-09 10:50] VITALS: BP 177/87
[2020-04-09 10:55] VITALS: BP 121/85
[2020-04-09 11:00] VITALS: BP 122/79
--- NOTE | 2020-04-09 11:19 | Pre-Op Note & Conscious Sedat ---
Pre-Operative Progress Note H&P Reviewed The H&P was reviewed, patient examined and no changes noted. Date H&P Reviewed: April 09, 2020 Time H&P Reviewed: 09:00 Pre-Op Diagnosis: Elevated WBC Conscious Sedation Pre-Proced Time 09:00 ASA Score 2 For ASA 3 and 4: Consider anesthesia and medical clearance. Also, for patients with a history of failed moderate sedation consider anesthesia. Airway Lungs Heart ASA score ASA 1: a normal healthy patient ASA 2: a patient with a mild systemic disease (mid diabetes, controlled hypertension, obesity ASA 3: a patient with a severe systemic disease that limits activity (angina, COPD, prior Myocardial infarction) ASA 4: a patient with an incapacitating disease that is a constant threat to life (CHF, renal failure) ASA 5: a moribund patient not expected to survive 24 hrs. (ruptured aneurysm) ASA 6: a declared brain- patient whose organs are being harvested. For emergent operations, add the letter E after the classification Mallampati Classification Grade 2 Sedation Plan Analgesia, Amnesia, Plan communicated to team members, Discussed options with patient/fam, Discussed risks with patient/fam The patient is an appropriate candidate to undergo the planned procedure, sedation, and anesthesia. The patient immediately re-assessed prior to indication. EPI JAIN MD April 09, 2020 11:19
[2020-04-09] MEDS ORDERED: HYDROcodone/APAP 5 MG/325 MG (LORTAB) TAB PO PRN (11:30)
--- NOTE | 2020-04-09 11:33 | Diagnostic Imaging Report ---
INDICATION: Elevated white blood cell count and elevated hemoglobin. Patient presents for CT-guided bone marrow biopsy. Patient brought to the CT suite placed on table in the prone position. Axial imaging through the pelvis was performed to evaluate appropriate entry site. Procedure was performed utilizing conscious sedation with radiology nursing and constant patient monitoring. Patient was administered 50 mg of fentanyl intravenously and 1 mg of Versed intravenously. Total procedure time was 5 minutes. Low back was prepped and draped in usual sterile fashion. Small amount of 1% lidocaine was utilized for local anesthesia. Bone marrow biopsy needle was advanced and placed with its tip along the posterior cortex of the right iliac bone. Needle was advanced through the posterior cortex utilizing a bone marrow drill. Two bone marrow aspirates were obtained. Bone marrow drill was then utilized to obtain a bone marrow core. Needle was withdrawn and hemostasis was obtained using manual compression. Patient tolerated procedure well and left department in stable condition. IMPRESSION: Successful CT-guided bone marrow aspiration and biopsy, utilizing conscious sedation. Pathology results are currently pending. Dictated by: Dictated on workstation # [id number]
== END 2020-04-09 13:16 | disposition home or self-care (01) ==
LOC: RAD 08:35 → SDC 11:12 → RAD 13:16
PROVIDERS: ATTEND Internal Medicine Hematology & Oncology
DX: D72.829 Elevated white blood cell count, unspecified (principal); R71.8 Other abnormality of red blood cells; D75.89 Other specified diseases of blood and blood-forming organs; I10 Essential (primary) hypertension; Z79.82 Long term (current) use of aspirin; Z95.2 Presence of prosthetic heart valve; Z87.891 Personal history of nicotine dependence; Z79.899 Other long term (current) drug therapy; Z80.9 Family history of malignant neoplasm, unspecified; Z83.3 Family history of diabetes mellitus
CPT/HCPCS: 36415; 38222; 77012; 85007; 85027; 85045; 85610; 85730; 99156

== ENCOUNTER → 2020-04-15 | Outpatient (CLI) | payer SELFPAY | LOC: CARD 09:48 | PROVIDERS: ATTEND Physician Assistant | DX: I10 Essential (primary) hypertension (principal); E78.2 Mixed hyperlipidemia; Z72.0 Tobacco use; I07.1 Rheumatic tricuspid insufficiency; Z95.2 Presence of prosthetic heart valve | CPT/HCPCS: 93306 ==

== ENCOUNTER 2020-08-31 14:58 | Outpatient (RCR) | payer SELFPAY ==
[2020-08-31 15:13] LABS: BASOPHILS # (AUTO) 0.1 10^3/uL (0.0-0.1); BASOPHILS % (AUTO) 1 % (0-10); EOSINOPHILS # (AUTO) 0.3 10^3/uL (0.0-0.3); EOSINOPHILS % (AUTO) 4 % (0-10); HEMATOCRIT 45 % (35-52); HEMOGLOBIN 14.7 g/dL (11.5-16.0); LYMPHOCYTES # (AUTO) 2.8 10^3/uL (1.0-4.0); LYMPHOCYTES % (AUTO) 34 % (12-44); MEAN CORPUSCULAR HEMOGLOBIN 32 pg (25-34); MEAN CORPUSCULAR HGB CONC 33 g/dL (32-36); MEAN CORPUSCULAR VOLUME 97 fL (80-99); MEAN PLATELET VOLUME 10.6 fL (9.0-12.2); MONOCYTES # (AUTO) 0.8 10^3/uL (0.0-1.0); MONOCYTES % (AUTO) 9 % (0-12); NEUTROPHILS # (AUTO) 4.4 10^3/uL (1.8-7.8); NEUTROPHILS % (AUTO) 52 % (42-75); PLATELET COUNT 373 10^3/uL (130-400); WHITE BLOOD COUNT 8.4 10^3/uL (4.3-11.0)
[2020-08-31 15:35] LABS: ALANINE AMINOTRANSFERASE 24 U/L (0-55); ALBUMIN 4.1 GM/DL (3.2-4.5); ALKALINE PHOSPHATASE 61 U/L (40-136); BILIRUBIN,TOTAL 0.5 MG/DL (0.1-1.0); BUN/CREATININE RATIO 12; CALCIUM 8.8 MG/DL (8.5-10.1); CARBON DIOXIDE 25 MMOL/L (21-32); CHLORIDE 105 MMOL/L (98-107); CREATININE SERUM 0.83 MG/DL (0.60-1.30); GFR ESTIMATED > 60; GLUCOSE 106 MG/DL (70-105); POTASSIUM 4.3 MMOL/L (3.6-5.0); SODIUM 138 MMOL/L (135-145); TOTAL PROTEIN 6.9 GM/DL (6.4-8.2)
== END 2020-11-29 | disposition home or self-care (01) ==
LOC: ONC 14:58
PROVIDERS: ATTEND Internal Medicine Hematology & Oncology
DX: D72.829 Elevated white blood cell count, unspecified (principal); D58.2 Other hemoglobinopathies; D75.89 Other specified diseases of blood and blood-forming organs; R79.89 Other specified abnormal findings of blood chemistry; H53.8 Other visual disturbances; I35.0 Nonrheumatic aortic (valve) stenosis; I10 Essential (primary) hypertension; Z95.2 Presence of prosthetic heart valve; Z98.890 Other specified postprocedural states; Z72.0 Tobacco use; R51.9 Headache, unspecified
CPT/HCPCS: 80053; 85025; G0463; 99213

== ENCOUNTER 2020-12-16 15:05 | Outpatient (RCR) | payer SELFPAY ==
[~2020-12-16 15:05] MED LIST changes: -LISI10TA2 PO; +LISI10TA25 PO
[2020-12-16 15:13] LABS: BASOPHILS # (AUTO) 0.1 10^3/uL (0.0-0.1); BASOPHILS % (AUTO) 1 % (0-10); EOSINOPHILS # (AUTO) 0.4 10^3/uL (0.0-0.3); EOSINOPHILS % (AUTO) 4 % (0-10); HEMATOCRIT 43 % (35-52); HEMOGLOBIN 14.2 g/dL (11.5-16.0); LYMPHOCYTES # (AUTO) 2.7 10^3/uL (1.0-4.0); LYMPHOCYTES % (AUTO) 31 % (12-44); MEAN CORPUSCULAR HEMOGLOBIN 35 pg (25-34); MEAN CORPUSCULAR HGB CONC 33 g/dL (32-36); MEAN CORPUSCULAR VOLUME 107 fL (80-99); MEAN PLATELET VOLUME 11.1 fL (9.0-12.2); MONOCYTES % (AUTO) 11 % (0-12); NEUTROPHILS # (AUTO) 4.7 10^3/uL (1.8-7.8); NEUTROPHILS % (AUTO) 53 % (42-75); PLATELET COUNT 381 10^3/uL (130-400); WHITE BLOOD COUNT 8.8 10^3/uL (4.3-11.0)
[2020-12-16 15:32] LABS: BILIRUBIN,TOTAL 0.2 MG/DL (0.1-1.0); CALCIUM 9.1 MG/DL (8.5-10.1); CREATININE SERUM 0.99 MG/DL (0.60-1.30); POTASSIUM 4.1 MMOL/L (3.6-5.0); TOTAL PROTEIN 6.7 GM/DL (6.4-8.2)
== END 2021-03-16 | disposition home or self-care (01) ==
LOC: ONC 15:05
PROVIDERS: ATTEND Internal Medicine Hematology & Oncology
DX: D45 Polycythemia vera (principal); D72.829 Elevated white blood cell count, unspecified; D58.2 Other hemoglobinopathies; D75.89 Other specified diseases of blood and blood-forming organs; R79.89 Other specified abnormal findings of blood chemistry; H53.8 Other visual disturbances; I35.0 Nonrheumatic aortic (valve) stenosis; I10 Essential (primary) hypertension; Z95.2 Presence of prosthetic heart valve; Z98.890 Other specified postprocedural states; Z72.0 Tobacco use; R51.9 Headache, unspecified
CPT/HCPCS: 80053; 82728; 83540; 85025; G0463; 99213

== ENCOUNTER → 2021-06-21 | Outpatient (CLI) | payer SELFPAY ==
[2021-06-21 14:50] LABS: BASOPHILS # (AUTO) 0.1 10^3/uL (0.0-0.1); BASOPHILS % (AUTO) 1 % (0-10); EOSINOPHILS # (AUTO) 0.3 10^3/uL (0.0-0.3); EOSINOPHILS % (AUTO) 4 % (0-10); HEMATOCRIT 44 % (35-52); HEMOGLOBIN 14.4 g/dL (11.5-16.0); LYMPHOCYTES % (AUTO) 38 % (12-44); MEAN CORPUSCULAR HEMOGLOBIN 35 pg (25-34); MEAN CORPUSCULAR HGB CONC 33 g/dL (32-36); MEAN CORPUSCULAR VOLUME 106 fL (80-99); MEAN PLATELET VOLUME 10.7 fL (9.0-12.2); MONOCYTES # (AUTO) 0.8 10^3/uL (0.0-1.0); MONOCYTES % (AUTO) 11 % (0-12); NEUTROPHILS # (AUTO) 3.5 10^3/uL (1.8-7.8); NEUTROPHILS % (AUTO) 46 % (42-75); PLATELET COUNT 412 10^3/uL (130-400); WHITE BLOOD COUNT 7.7 10^3/uL (4.3-11.0)
[2021-06-21 15:07] LABS: ALBUMIN 4.1 GM/DL (3.2-4.5); BILIRUBIN,TOTAL 0.3 MG/DL (0.1-1.0); CALCIUM 9.4 MG/DL (8.5-10.1); CREATININE SERUM 0.94 MG/DL (0.60-1.30); TOTAL PROTEIN 7.1 GM/DL (6.4-8.2)
== END ==
LOC: EDSTATUS 03-17 16:18 → ONC 14:41
PROVIDERS: ATTEND Internal Medicine Hematology & Oncology
DX: D45 Polycythemia vera (principal); I10 Essential (primary) hypertension; I35.0 Nonrheumatic aortic (valve) stenosis; E78.2 Mixed hyperlipidemia; F17.200 Nicotine dependence, unspecified, uncomplicated; Z95.2 Presence of prosthetic heart valve
CPT/HCPCS: 80053; 85025; G0463; 99213

== ENCOUNTER → 2021-09-27 | Outpatient (CLI) | payer SELFPAY ==
[2021-09-27 10:01] LABS: BASOPHILS # (AUTO) 0.1 10^3/uL (0.0-0.1); BASOPHILS % (AUTO) 1 % (0-10); EOSINOPHILS # (AUTO) 0.3 10^3/uL (0.0-0.3); EOSINOPHILS % (AUTO) 4 % (0-10); HEMATOCRIT 41 % (35-52); HEMOGLOBIN 13.7 g/dL (11.5-16.0); LYMPHOCYTES # (AUTO) 2.3 10^3/uL (1.0-4.0); LYMPHOCYTES % (AUTO) 31 % (12-44); MEAN CORPUSCULAR HEMOGLOBIN 34 pg (25-34); MEAN CORPUSCULAR HGB CONC 33 g/dL (32-36); MEAN CORPUSCULAR VOLUME 103 fL (80-99); MONOCYTES # (AUTO) 0.7 10^3/uL (0.0-1.0); MONOCYTES % (AUTO) 9 % (0-12); NEUTROPHILS # (AUTO) 4.2 10^3/uL (1.8-7.8); NEUTROPHILS % (AUTO) 55 % (42-75); PLATELET COUNT 362 10^3/uL (130-400); WHITE BLOOD COUNT 7.6 10^3/uL (4.3-11.0)
== END ==
LOC: ONC 09:50
PROVIDERS: ATTEND Internal Medicine Hematology & Oncology
DX: D45 Polycythemia vera (principal); I10 Essential (primary) hypertension; I35.0 Nonrheumatic aortic (valve) stenosis; E78.2 Mixed hyperlipidemia; F17.200 Nicotine dependence, unspecified, uncomplicated; Z95.2 Presence of prosthetic heart valve
CPT/HCPCS: 85025

== ENCOUNTER → 2022-01-09 | Outpatient (CLI) | payer BC, OTHER ==
[2022-01-09 14:49] LABS: BASOPHILS # (AUTO) 0.1 10^3/uL (0.0-0.1); BASOPHILS % (AUTO) 1 % (0-10); EOSINOPHILS # (AUTO) 0.4 10^3/uL (0.0-0.3); EOSINOPHILS % (AUTO) 5 % (0-10); HEMATOCRIT 42 % (35-52); HEMOGLOBIN 14.2 g/dL (11.5-16.0); LYMPHOCYTES # (AUTO) 2.7 10^3/uL (1.0-4.0); LYMPHOCYTES % (AUTO) 31 % (12-44); MEAN CORPUSCULAR HEMOGLOBIN 35 pg (25-34); MEAN CORPUSCULAR HGB CONC 34 g/dL (32-36); MEAN CORPUSCULAR VOLUME 104 fL (80-99); MEAN PLATELET VOLUME 10.4 fL (9.0-12.2); MONOCYTES # (AUTO) 0.9 10^3/uL (0.0-1.0); MONOCYTES % (AUTO) 10 % (0-12); NEUTROPHILS # (AUTO) 4.8 10^3/uL (1.8-7.8); NEUTROPHILS % (AUTO) 54 % (42-75); PLATELET COUNT 320 10^3/uL (130-400); WHITE BLOOD COUNT 8.8 10^3/uL (4.3-11.0)
[2022-01-09 15:25] LABS: BILIRUBIN,TOTAL 0.3 MG/DL (0.1-1.0); CALCIUM 9.2 MG/DL (8.5-10.1); CREATININE SERUM 1.02 MG/DL (0.60-1.30); POTASSIUM 3.9 MMOL/L (3.6-5.0); TOTAL PROTEIN 6.7 GM/DL (6.4-8.2)
== END ==
LOC: ONC 14:41
PROVIDERS: ATTEND Internal Medicine Hematology & Oncology
DX: Z45.2 Encounter for adjustment and management of vascular access device (principal); D45 Polycythemia vera; I10 Essential (primary) hypertension; E78.2 Mixed hyperlipidemia; I35.0 Nonrheumatic aortic (valve) stenosis; F17.200 Nicotine dependence, unspecified, uncomplicated; Z98.890 Other specified postprocedural states
CPT/HCPCS: 80053; 85025; G0463; 36415; 99213

== ENCOUNTER → 2022-04-13 | Outpatient (CLI) | payer BC ==
[2022-04-13 12:58] LABS: BASOPHILS % (AUTO) 1 % (0-10); EOSINOPHILS # (AUTO) 0.2 10^3/uL (0.0-0.3); EOSINOPHILS % (AUTO) 3 % (0-10); HEMATOCRIT 44 % (35-52); HEMOGLOBIN 15.1 g/dL (11.5-16.0); LYMPHOCYTES % (AUTO) 34 % (12-44); MEAN CORPUSCULAR HEMOGLOBIN 36 pg (25-34); MEAN CORPUSCULAR HGB CONC 34 g/dL (32-36); MEAN CORPUSCULAR VOLUME 105 fL (80-99); MEAN PLATELET VOLUME 10.3 fL (9.0-12.2); MONOCYTES # (AUTO) 0.5 10^3/uL (0.0-1.0); MONOCYTES % (AUTO) 9 % (0-12); NEUTROPHILS # (AUTO) 3.3 10^3/uL (1.8-7.8); NEUTROPHILS % (AUTO) 54 % (42-75); PLATELET COUNT 226 10^3/uL (130-400); WHITE BLOOD COUNT 6.1 10^3/uL (4.3-11.0)
== END ==
LOC: ONC 12:49
PROVIDERS: ATTEND Internal Medicine Hematology & Oncology
DX: D45 Polycythemia vera (principal); R42 Dizziness and giddiness; R51.9 Headache, unspecified; H53.8 Other visual disturbances; I10 Essential (primary) hypertension; F17.210 Nicotine dependence, cigarettes, uncomplicated; Z95.2 Presence of prosthetic heart valve; Z79.899 Other long term (current) drug therapy
CPT/HCPCS: 36415; 85025

== ENCOUNTER → 2022-07-10 | Outpatient (CLI) | payer BC ==
[2022-07-10 15:20] LABS: BASOPHILS % (AUTO) 0 % (0-10); EOSINOPHILS # (AUTO) 0.2 10^3/uL (0.0-0.3); EOSINOPHILS % (AUTO) 4 % (0-10); HEMATOCRIT 40 % (35-52); HEMOGLOBIN 13.1 g/dL (11.5-16.0); LYMPHOCYTES % (AUTO) 36 % (12-44); MEAN CORPUSCULAR HEMOGLOBIN 36 pg (25-34); MEAN CORPUSCULAR HGB CONC 33 g/dL (32-36); MEAN CORPUSCULAR VOLUME 108 fL (80-99); MONOCYTES # (AUTO) 0.4 X 10^3 (0.0-1.0); MONOCYTES % (AUTO) 7 % (0-12); NEUTROPHILS % (AUTO) 53 % (42-75); PLATELET COUNT 226 10^3/uL (130-400); WHITE BLOOD COUNT 5.7 10^3/uL (4.3-11.0)
[2022-07-10 15:39] LABS: ALBUMIN 4.1 GM/DL (3.2-4.5); BILIRUBIN,TOTAL 0.3 MG/DL (0.1-1.0); CALCIUM 9.2 MG/DL (8.5-10.1); CREATININE SERUM 0.95 MG/DL (0.60-1.30); POTASSIUM 3.6 MMOL/L (3.6-5.0); TOTAL PROTEIN 6.8 GM/DL (6.4-8.2)
== END ==
LOC: ONC 14:52
PROVIDERS: ATTEND Internal Medicine Hematology & Oncology
DX: D45 Polycythemia vera (principal); I10 Essential (primary) hypertension; E78.2 Mixed hyperlipidemia
CPT/HCPCS: 80053; 85025; G0463; 36415; 99213

== ENCOUNTER 2022-08-08 08:20 | Emergency (ER) | payer BC ==
[~2022-08-08] VITALS: Ht 165 cm; Wt 68.0 kg
[2022-08-08 08:38] LABS: BASOPHILS % (AUTO) 0 % (0-10); EOSINOPHILS # (AUTO) 0.1 10^3/uL (0.0-0.3); EOSINOPHILS % (AUTO) 2 % (0-10); HEMATOCRIT 42 % (35-52); HEMOGLOBIN 14.2 g/dL (11.5-16.0); LYMPHOCYTES # (AUTO) 1.6 10^3/uL (1.0-4.0); LYMPHOCYTES % (AUTO) 31 % (12-44); MEAN CORPUSCULAR HEMOGLOBIN 36 pg (25-34); MEAN CORPUSCULAR HGB CONC 34 g/dL (32-36); MEAN CORPUSCULAR VOLUME 106 fL (80-99); MEAN PLATELET VOLUME 10.4 fL (9.0-12.2); MONOCYTES # (AUTO) 0.5 10^3/uL (0.0-1.0); MONOCYTES % (AUTO) 9 % (0-12); NEUTROPHILS # (AUTO) 2.9 10^3/uL (1.8-7.8); NEUTROPHILS % (AUTO) 57 % (42-75); PLATELET COUNT 226 10^3/uL (130-400)
[2022-08-08 08:49] LABS: ALBUMIN 4.4 GM/DL (3.2-4.5)
[2022-08-08 08:51] LABS: CALCIUM 9.6 MG/DL (8.5-10.1)
[2022-08-08 08:52] LABS: TOTAL PROTEIN 7.4 GM/DL (6.4-8.2)
[2022-08-08 08:53] LABS: INR 0.9 (0.8-1.4); PROTHROMBIN TIME PATIENT 12.9 SEC (12.2-14.7)
[2022-08-08 08:54] LABS: BILIRUBIN,TOTAL 0.3 MG/DL (0.1-1.0)
[2022-08-08 08:56] LABS: CREATININE SERUM 0.9 MG/DL (0.60-1.30)
--- NOTE | 2022-08-08 09:03 | ED Chest Pain ---
General Chief Complaint: Chest Pain Stated Complaint: CHEST PRESSURE/SOA Nursing Triage Note: Pt reports chest pressure that started last night while doing dishes. Pt reports pain has somewhat improved this morning. Pt has hx aortic valve replacement. Source: patient Exam Limitations: no limitations History of Present Illness Date Seen by Provider: Aug 08, 2022 Time Seen by Provider: 08:27 Initial Comments This 52-year-old woman presents to the emergency room with complaints of a sudden chest discomfort and pressure that started last night. It resolved before going to bed. Then she woke at 0430 this morning with a similar but less intense pain. Last night she was nauseated and vomited and experienced some numbness and tingling in the jaw. She has risk factors that include a porcine aortic valve replacement, polycythemia vera treated with hydroxyurea, and tobaccoism. She denies any history of coronary artery disease. Her debt recovery officer is Dr. Hernández. She has no primary care provider. She reports her discomfort as 1 out of 10 right now. She is slightly lightheaded upon standing. She had a cardiac cath performed here in 2017 which showed a heavily calcified aortic valve. Otherwise she was free of obstructive disease. Ejection fraction was 70%. Allergies and Home Medications Allergies Coded Allergies: No Known Drug Allergies (Unverified , 01/16/14) Patient Home Medication List Home Medication List Reviewed: Yes Lisinopril (Lisinopril) 10 Mg Tablet, 10 MG PO DAILY, (Reported) Entered as Reported by: SHELLEY BLACK on 01/09/18909 Metoprolol Succinate (Toprol Xl) 25 Mg Tab.er.24h, 25 MG PO DAILY, (Reported) Entered as Reported by: SHELLEY BLACK on 01/09/18909 Multivitamin (Daily Multiple Vitamin) 1 Each Tablet, 1 TAB PO DAILY, (Reported) Entered as Reported by: SHELLEY BLACK on 01/09/18909 Hayti 3 Polyunsat Fatty Acids (Fish Oil 1,000 mg Capsule) 1,000 Mg Cap, 1,000 MG PO TID, (Reported) Entered as Reported by: SHELLEY BLACK on 01/09/18909 Review of Systems Review of Systems Constitutional: no symptoms reported EENTM: No Symptoms Reported Respiratory: See HPI, Shortness of Air Cardiovascular: See HPI Gastrointestinal: See HPI Genitourinary: No Symptoms Reported Musculoskeletal: no symptoms reported Skin: no symptoms reported Psychiatric/Neurological: No Symptoms Reported Endocrine: No Symptoms Reported Past Jebrsxl-Ruwgrm-Solqbq Hx Patient Social History Tobacco Use?: Yes Tobacco type used: Cigarettes Smoking Status: Current Everyday Smoker Substance use?: No Alcohol Use?: No Immunizations Up To Date First/Initial COVID19 Vaccinat: 2020 Past Medical History Surgery/Hospitalization HX: aortic valve replacement, polycythemia vera Surgeries: Yes (TUBAL ) Cardiac (Porcine aortic valve replacement), Open Heart Surgery, Valve Replacement Respiratory: Yes COPD Cardiac: Yes (AORTIC STENOSIS) Hypertension, Valvular Heart Disease Neurological: No : No 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 0.0oz. 61.324156jp; 24.00 BMI Method:Stated General Appearance: No Apparent Distress, WD/WN HEENT: PERRL/EOMI, Normal ENT Inspection Neck: Normal Inspection; No JVD Respiratory: Chest Non Tender, Lungs Clear, Normal Breath Sounds, No Accessory Muscle Use, No Respiratory Distress Cardiovascular: Regular Rate, Rhythm, No Edema, No Murmur Gastrointestinal: Normal Bowel Sounds, Soft; No Distended; Tenderness (Minimal in the epigastrium) Extremity: Normal Inspection, Non Tender (Has chronic soreness but unchanged from baseline), No Pedal Edema Neurologic/Psychiatric: Alert, Oriented x3, No Motor/Sensory Deficits, Normal Mood/Affect Skin: Normal Color, Warm/Dry Progress/Results/Core Measures Results/Orders Lab Results Laboratory Tests Test 08/08/22 08:31 08/08/22 10:32 Range/Units White Blood Count 5.0 4.3-11.0 10^3/uL Red Blood Count 3.92 3.80-5.11 10^6/uL Hemoglobin 14.2 11.5-16.0 g/dL Hematocrit 42 35-52 % Mean Corpuscular Volume 106 H 80-99 fL Mean Corpuscular Hemoglobin 36 H 25-34 pg Mean Corpuscular Hemoglobin Concent 34 32-36 g/dL Red Cell Distribution Width 13.2 10.0-14.5 % Platelet Count 226 130-400 10^3/uL Mean Platelet Volume 10.4 9.0-12.2 fL Immature Granulocyte % (Auto) 0 % Neutrophils (%) (Auto) 57 42-75 % Lymphocytes (%) (Auto) 31 12-44 % Monocytes (%) (Auto) 9 0-12 % Eosinophils (%) (Auto) 2 0-10 % Basophils (%) (Auto) 0 0-10 % Neutrophils # (Auto) 2.9 1.8-7.8 10^3/uL Lymphocytes # (Auto) 1.6 1.0-4.0 10^3/uL Monocytes # (Auto) 0.5 0.0-1.0 10^3/uL Eosinophils # (Auto) 0.1 0.0-0.3 10^3/uL Basophils # (Auto) 0.0 0.0-0.1 10^3/uL Immature Granulocyte # (Auto) 0.0 0.0-0.1 10^3/uL Prothrombin Time 12.9 12.2-14.7 SEC INR Comment 0.9 0.8-1.4 Activated Partial Thromboplast Time 29 24-35 SEC Sodium Level 142 135-145 MMOL/L Potassium Level 4.0 3.6-5.0 MMOL/L Chloride Level 106 98-107 MMOL/L Carbon Dioxide Level 25 21-32 MMOL/L Anion Gap 11 5-14 MMOL/L Blood Urea Nitrogen 11 7-18 MG/DL Creatinine 0.90 0.60-1.30 MG/DL Estimat Glomerular Filtration Rate 77 BUN/Creatinine Ratio 12 Glucose Level 104 70-105 MG/DL Calcium Level 9.6 8.5-10.1 MG/DL Corrected Calcium 9.3 8.5-10.1 MG/DL Magnesium Level 2.0 1.6-2.4 MG/DL Total Bilirubin 0.3 0.1-1.0 MG/DL Aspartate Amino Transf (AST/SGOT) 353 H 5-34 U/L Alanine Aminotransferase (ALT/SGPT) 236 H 0-55 U/L Alkaline Phosphatase 125 40-136 U/L Myoglobin 35.9 10.0-92.0 NG/ML Troponin I < 0.028 < 0.028 <0.028 NG/ML Total Protein 7.4 6.4-8.2 GM/DL Albumin 4.4 3.2-4.5 GM/DL Lipase 14 8-78 U/L My Orders Orders - TITUS STARK MD Ekg Tracing (08/08/22 08:25) Cbc With Automated Diff (08/08/22 08:31) Magnesium (08/08/22 08:31) Chest 1 View, Ap/Pa Only (08/08/22 08:31) Comprehensive Metabolic Panel (08/08/22 08:31) Myoglobin Serum (08/08/22 08:31) Protime With Inr (08/08/22 08:31) Partial Thromboplastin Time (08/08/22 08:31) O2 (08/08/22 08:31) Monitor-Rhythm Ecg Trace Only (08/08/22 08:31) Lipid Panel (08/09/22 06:00) Ed Iv/Invasive Line Start (08/08/22 08:31) Troponin I [place] (08/08/22 08:31) Lipase (08/08/22 09:07) Troponin I [place] (08/08/22 10:30) Us Abdomen Limited 25127 (08/08/22 09:09) Hepatitis Panel Acute (08/08/22 13:29) Vital Signs/I&O 08/08/22 08:25 Temp 36.4 Pulse 66 Resp 18 B/P (MAP) 182/87 (118) Pulse Ox 98 O2 Delivery Room Air Blood Pressure Mean: 118 Initial ECG Impression Date: Aug 08, 2022 Initial ECG Impression Time: 08:27 Initial ECG Rate: 65 Initial ECG Rhythm: Normal Sinus Comment Normal sinus rhythm with no ST elevation. Subtle nondiagnostic ST depression noted on automated read. No abnormal intervals or axis deviation. Diagnostic Imaging Diagonstic Imaging: Ultrasound Plain Films/CT/US/NM/MRI: abdomen Comments NAME: ALPHONSO [facility] REC#: [id number] PT STATUS: REG ER : 1970 PHYSICIAN: TITUS STARK MD ADMIT DATE: 08/08/22/ER Signed Date of Exam:08/08/22 US ABDOMEN LIMITED [id number] EXAMINATION: US Abdomen limited. TECHNIQUE: Multiple real-time grayscale images were obtained over the right upper quadrant in various projections. REASON FOR EXAM: Epigastric pain. Vomiting. Elevated liver enzymes. COMPARISON: None. FINDINGS: The liver is normal in size and shape. The liver echogenicity is within normal limits. There are no focal lesions. No intrahepatic biliary dilatation is present. The common bile duct is not dilated and measures 5 mm. The main portal vein is hepatopedal. No ascites is seen in the upper abdomen. Multiple mobile gallstones are visualized in the gallbladder lumen. There is no evidence of gallbladder wall thickening or pericholecystic fluid. Sonographic Omrrissey's sign is negative. The visualized portion of the head of the pancreas are within normal limits. The body and tail of the pancreas are not well visualized due to overlying bowel gas. The visualized portions of the IVC and aorta appear normal. The right kidney measures approximately 8.6 cm in length and has a normal appearance. IMPRESSION: 1. Cholelithiasis without sonographic evidence of acute cholecystitis. Recommend correlation with patient history and symptoms and if indicated surgical consultation to further evaluate. Dictated by: Dictated on workstation # [id number] Dict: 08/08/22954 Trans: 08/08/2259 [facility] [id number] Interpreted by: JENNIFER JUAREZ DO Electronically signed by: JENNIFER JUAREZ DO 08/08/2259 Reviewed: Reviewed by Me Departure Impression Primary Impression: Atypical chest pain Additional Impressions: Elevated liver enzymes Epigastric pain Polycythemia vera Disposition: 01 HOME, SELF-CARE Condition: Improved Departure-Patient Inst. Decision time for Depature: 13:58 Referrals: [facility] (PCP/Family) Primary Care Physician KRYSTIN RODAS BRETT D DO KIDO, TAKAAKI MD XUN, CHANG-QING MD Patient Instructions: Transaminase Tests, Chest Pain That Is Not Caused by the Heart (DC) Add. Discharge Instructions: Your chest pain is not likely caused by cardiac disease. It is more likely related to gallstones and/or esophagitis and/or gastritis. Eat a low fat and low oil diet to avoid irritating the gallbladder. You should establish with a general surgeon to discuss your gallstones. You may eventually have complications with your gallstones that require surgical intervention. Use an antacid medication such as famotidine (Pepcid) 20 mg twice daily for the next couple of weeks as your pain may be related to gastritis or esophagitis. Stop hydroxyurea. Your elevated liver enzymes could be related to hydroxyurea use. Present your lab order to the [facility] on August 14. Dr. Vahid Watson will review the labs and will give you follow-up instructions. If you do not receive follow-up instructions by late Sunday, please call the [facility] for instructions. Return to the emergency room if you have worsening symptoms despite following these instructions. Please make a follow-up appointment to see your primary care provider within the next couple of weeks as well. A list of local general surgeons is provided below for your convenience. All discharge instructions reviewed with patient and/or family. Voiced understanding. Copy Copies To 1: LEELA WATSON MD Copies To 2: [facility]/TITUS MURRELL MD Aug 08, 2022 09:03
--- NOTE | 2022-08-08 09:15 | Diagnostic Imaging Report ---
EXAMINATION: Chest 1 view HISTORY: Chest pain. COMPARISON: 01/07/2019. FINDINGS: The lung volumes are normal. No focal consolidation is seen. No large pleural effusion or pneumothorax is seen. Stable cardiac silhouette with sternotomy wires in place. No acute osseous abnormality is seen. IMPRESSION: 1. No acute pleuroparenchymal process. Dictated by: Dictated on workstation # [id number]
--- NOTE | 2022-08-08 09:57 | Diagnostic Imaging Report ---
EXAMINATION: US Abdomen limited. TECHNIQUE: Multiple real-time grayscale images were obtained over the right upper quadrant in various projections. REASON FOR EXAM: Epigastric pain. Vomiting. Elevated liver enzymes. COMPARISON: None. FINDINGS: The liver is normal in size and shape. The liver echogenicity is within normal limits. There are no focal lesions. No intrahepatic biliary dilatation is present. The common bile duct is not dilated and measures 5 mm. The main portal vein is hepatopedal. No ascites is seen in the upper abdomen. Multiple mobile gallstones are visualized in the gallbladder lumen. There is no evidence of gallbladder wall thickening or pericholecystic fluid. Sonographic Morrissey's sign is negative. The visualized portion of the head of the pancreas are within normal limits. The body and tail of the pancreas are not well visualized due to overlying bowel gas. The visualized portions of the IVC and aorta appear normal. The right kidney measures approximately 8.6 cm in length and has a normal appearance. IMPRESSION: 1. Cholelithiasis without sonographic evidence of acute cholecystitis. Recommend correlation with patient history and symptoms and if indicated surgical consultation to further evaluate. Dictated by: Dictated on workstation # [id number]
[2022-08-08 14:13] VITALS: BP 121/74
[2022-08-08 21:48] LABS: HEPATITIS C ANTIBODY C Non-Reactive (Non-Reactive)
== END 2022-08-08 14:13 | disposition home or self-care (01) ==
LOC: EDUNIT# 08:20 → ER 08:22
DX: D45 Polycythemia vera (principal); R07.89 Other chest pain; R10.13 Epigastric pain; R94.5 Abnormal results of liver function studies; F17.210 Nicotine dependence, cigarettes, uncomplicated; Z98.61 Coronary angioplasty status; Z95.4 Presence of other heart-valve replacement; Z98.890 Other specified postprocedural states; Z28.311 Partially vaccinated for COVID-19
CPT/HCPCS: 36415; 71045; 76705; 80053; 80074; 83690; 83735; 83874; 84484; 85025; 85610; 85730; 93005; 93041

== ENCOUNTER → 2022-08-15 | Outpatient (CLI) | payer BC ==
[2022-08-15 16:01] LABS: ALBUMIN 4.2 GM/DL (3.2-4.5)
[2022-08-15 16:03] LABS: CALCIUM 9.6 MG/DL (8.5-10.1)
[2022-08-15 16:04] LABS: TOTAL PROTEIN 6.9 GM/DL (6.4-8.2)
[2022-08-15 16:06] LABS: BILIRUBIN,TOTAL 0.2 MG/DL (0.1-1.0)
[2022-08-15 16:08] LABS: CREATININE SERUM 1.21 MG/DL (0.60-1.30)
[2022-08-15 16:11] LABS: BASOPHILS % (AUTO) 1 % (0-10); EOSINOPHILS # (AUTO) 0.2 10^3/uL (0.0-0.3); EOSINOPHILS % (AUTO) 3 % (0-10); HEMATOCRIT 40 % (35-52); HEMOGLOBIN 13.4 g/dL (11.5-16.0); LYMPHOCYTES # (AUTO) 2.2 10^3/uL (1.0-4.0); LYMPHOCYTES % (AUTO) 32 % (12-44); MEAN CORPUSCULAR HEMOGLOBIN 36 pg (25-34); MEAN CORPUSCULAR HGB CONC 34 g/dL (32-36); MEAN CORPUSCULAR VOLUME 108 fL (80-99); MEAN PLATELET VOLUME 10.8 fL (9.0-12.2); MONOCYTES # (AUTO) 0.6 10^3/uL (0.0-1.0); MONOCYTES % (AUTO) 9 % (0-12); NEUTROPHILS # (AUTO) 3.8 10^3/uL (1.8-7.8); NEUTROPHILS % (AUTO) 56 % (42-75); PLATELET COUNT 288 10^3/uL (130-400); WHITE BLOOD COUNT 6.8 10^3/uL (4.3-11.0)
== END ==
LOC: LAB 15:28
PROVIDERS: ATTEND Family Medicine
DX: R74.01 Elevation of levels of liver transaminase levels (principal); D45 Polycythemia vera
CPT/HCPCS: 36415; 80053; 85025

== ENCOUNTER → 2022-10-09 | Outpatient (CLI) | payer BC ==
[2022-10-09 15:18] LABS: BASOPHILS % (AUTO) 1 % (0-10); EOSINOPHILS # (AUTO) 0.2 10^3/uL (0.0-0.3); EOSINOPHILS % (AUTO) 3 % (0-10); HEMATOCRIT 41 % (35-52); HEMOGLOBIN 13.2 g/dL (11.5-16.0); LYMPHOCYTES # (AUTO) 2.1 10^3/uL (1.0-4.0); LYMPHOCYTES % (AUTO) 33 % (12-44); MEAN CORPUSCULAR HEMOGLOBIN 34 pg (25-34); MEAN CORPUSCULAR HGB CONC 33 g/dL (32-36); MEAN CORPUSCULAR VOLUME 103 fL (80-99); MONOCYTES # (AUTO) 0.7 10^3/uL (0.0-1.0); MONOCYTES % (AUTO) 10 % (0-12); NEUTROPHILS # (AUTO) 3.4 10^3/uL (1.8-7.8); NEUTROPHILS % (AUTO) 53 % (42-75); PLATELET COUNT 235 10^3/uL (130-400); WHITE BLOOD COUNT 6.4 10^3/uL (4.3-11.0)
[2022-10-09 15:38] LABS: ALBUMIN 3.9 GM/DL (3.2-4.5); BILIRUBIN,TOTAL 0.3 MG/DL (0.1-1.0); CALCIUM 9.1 MG/DL (8.5-10.1); CREATININE SERUM 0.83 MG/DL (0.60-1.30); POTASSIUM 4.1 MMOL/L (3.6-5.0); TOTAL PROTEIN 6.5 GM/DL (6.4-8.2)
== END ==
LOC: ONC 15:00
PROVIDERS: ATTEND Internal Medicine Hematology & Oncology
DX: D45 Polycythemia vera (principal); I10 Essential (primary) hypertension; E78.2 Mixed hyperlipidemia; I35.0 Nonrheumatic aortic (valve) stenosis; R42 Dizziness and giddiness; H53.8 Other visual disturbances; R51.9 Headache, unspecified; F17.200 Nicotine dependence, unspecified, uncomplicated; Z98.890 Other specified postprocedural states
CPT/HCPCS: 80053; 85025; G0463; 36415; 99213

== ENCOUNTER → 2023-01-01 | Outpatient (CLI) | payer BC, OTHER ==
[2023-01-01 15:31] LABS: BASOPHILS % (AUTO) 1 % (0-10); EOSINOPHILS # (AUTO) 0.2 10^3/uL (0.0-0.3); EOSINOPHILS % (AUTO) 3 % (0-10); HEMATOCRIT 43 % (35-52); HEMOGLOBIN 14.7 g/dL (11.5-16.0); LYMPHOCYTES # (AUTO) 1.8 10^3/uL (1.0-4.0); LYMPHOCYTES % (AUTO) 23 % (12-44); MEAN CORPUSCULAR HEMOGLOBIN 35 pg (25-34); MEAN CORPUSCULAR HGB CONC 34 g/dL (32-36); MEAN CORPUSCULAR VOLUME 102 fL (80-99); MEAN PLATELET VOLUME 11.1 fL (9.0-12.2); MONOCYTES # (AUTO) 0.6 10^3/uL (0.0-1.0); MONOCYTES % (AUTO) 8 % (0-12); NEUTROPHILS % (AUTO) 66 % (42-75); PLATELET COUNT 245 10^3/uL (130-400); WHITE BLOOD COUNT 7.7 10^3/uL (4.3-11.0)
[2023-01-01 15:56] LABS: ALBUMIN 4.1 GM/DL (3.2-4.5); BILIRUBIN,TOTAL 0.5 MG/DL (0.1-1.0); CALCIUM 9.6 MG/DL (8.5-10.1); CREATININE SERUM 0.92 MG/DL (0.60-1.30); POTASSIUM 4.1 MMOL/L (3.6-5.0); TOTAL PROTEIN 7.2 GM/DL (6.4-8.2)
== END ==
LOC: ONC 15:19
PROVIDERS: ATTEND Internal Medicine Hematology & Oncology
DX: D45 Polycythemia vera (principal); I35.0 Nonrheumatic aortic (valve) stenosis; E78.2 Mixed hyperlipidemia; I10 Essential (primary) hypertension; Z72.0 Tobacco use; Z95.2 Presence of prosthetic heart valve
CPT/HCPCS: 36415; 80053; 85025

== ENCOUNTER → 2023-04-02 | Outpatient (CLI) | payer OTHER ==
[2023-04-02 15:35] LABS: BASOPHILS # (AUTO) 0.1 10^3/uL (0.0-0.1); BASOPHILS % (AUTO) 1 % (0-10); EOSINOPHILS # (AUTO) 0.2 10^3/uL (0.0-0.3); EOSINOPHILS % (AUTO) 3 % (0-10); HEMATOCRIT 42 % (35-52); HEMOGLOBIN 13.9 g/dL (11.5-16.0); LYMPHOCYTES # (AUTO) 2.5 10^3/uL (1.0-4.0); LYMPHOCYTES % (AUTO) 37 % (12-44); MEAN CORPUSCULAR HEMOGLOBIN 36 pg (25-34); MEAN CORPUSCULAR HGB CONC 33 g/dL (32-36); MEAN CORPUSCULAR VOLUME 107 fL (80-99); MEAN PLATELET VOLUME 10.8 fL (9.0-12.2); MONOCYTES # (AUTO) 0.7 10^3/uL (0.0-1.0); MONOCYTES % (AUTO) 10 % (0-12); NEUTROPHILS # (AUTO) 3.3 10^3/uL (1.8-7.8); NEUTROPHILS % (AUTO) 50 % (42-75); PLATELET COUNT 285 10^3/uL (130-400); WHITE BLOOD COUNT 6.7 10^3/uL (4.3-11.0)
[2023-04-02 15:37] LABS: SMEAR SCAN COMMENT YES
[2023-04-02 15:53] LABS: ALBUMIN 4.2 GM/DL (3.2-4.5); BILIRUBIN,TOTAL 0.2 MG/DL (0.1-1.0); CALCIUM 9.5 MG/DL (8.5-10.1); CREATININE SERUM 0.93 MG/DL (0.60-1.30); POTASSIUM 4.1 MMOL/L (3.6-5.0)
== END ==
LOC: ONC 15:17
PROVIDERS: ATTEND Internal Medicine Hematology & Oncology
DX: D45 Polycythemia vera (principal); E78.2 Mixed hyperlipidemia; I10 Essential (primary) hypertension; I35.0 Nonrheumatic aortic (valve) stenosis; Z72.0 Tobacco use; Z95.2 Presence of prosthetic heart valve
CPT/HCPCS: 36415; 80053; 85025

== ENCOUNTER → 2023-07-26 | Outpatient (CLI) | payer OTHER ==
[2023-07-26 15:31] LABS: BASOPHILS % (AUTO) 1 % (0-10); EOSINOPHILS # (AUTO) 0.2 10^3/uL (0.0-0.3); EOSINOPHILS % (AUTO) 3 % (0-10); HEMATOCRIT 41 % (35-52); HEMOGLOBIN 13.8 g/dL (11.5-16.0); LYMPHOCYTES # (AUTO) 2.1 10^3/uL (1.0-4.0); LYMPHOCYTES % (AUTO) 32 % (12-44); MEAN CORPUSCULAR HEMOGLOBIN 36 pg (25-34); MEAN CORPUSCULAR HGB CONC 33 g/dL (32-36); MEAN CORPUSCULAR VOLUME 108 fL (80-99); MEAN PLATELET VOLUME 10.9 fL (9.0-12.2); MONOCYTES # (AUTO) 0.6 10^3/uL (0.0-1.0); MONOCYTES % (AUTO) 9 % (0-12); NEUTROPHILS # (AUTO) 3.5 10^3/uL (1.8-7.8); NEUTROPHILS % (AUTO) 55 % (42-75); PLATELET COUNT 225 10^3/uL (130-400); WHITE BLOOD COUNT 6.4 10^3/uL (4.3-11.0)
[2023-07-26 15:51] LABS: ALBUMIN 4.1 GM/DL (3.2-4.5); BILIRUBIN,TOTAL 0.2 MG/DL (0.1-1.0); CALCIUM 8.9 MG/DL (8.5-10.1); CREATININE SERUM 0.88 MG/DL (0.60-1.30); TOTAL PROTEIN 6.8 GM/DL (6.4-8.2)
== END ==
LOC: ONC 07-12 15:14
PROVIDERS: ATTEND Internal Medicine Hematology & Oncology
DX: D45 Polycythemia vera (principal); I35.0 Nonrheumatic aortic (valve) stenosis; I10 Essential (primary) hypertension; Z87.891 Personal history of nicotine dependence; E78.2 Mixed hyperlipidemia
CPT/HCPCS: 80053; 85025; G0463; 36415; 99214

== ENCOUNTER → 2023-10-26 | Outpatient (CLI) | payer OTHER ==
[2023-10-26 10:16] LABS: BASOPHILS % (AUTO) 0 % (0-10); EOSINOPHILS # (AUTO) 0.2 10^3/uL (0.0-0.3); EOSINOPHILS % (AUTO) 3 % (0-10); HEMATOCRIT 43 % (35-52); HEMOGLOBIN 14.2 g/dL (11.5-16.0); LYMPHOCYTES # (AUTO) 1.8 10^3/uL (1.0-4.0); LYMPHOCYTES % (AUTO) 23 % (12-44); MEAN CORPUSCULAR HEMOGLOBIN 36 pg (25-34); MEAN CORPUSCULAR HGB CONC 33 g/dL (32-36); MEAN CORPUSCULAR VOLUME 109 fL (80-99); MEAN PLATELET VOLUME 11.2 fL (9.0-12.2); MONOCYTES # (AUTO) 0.5 10^3/uL (0.0-1.0); MONOCYTES % (AUTO) 6 % (0-12); NEUTROPHILS # (AUTO) 5.2 10^3/uL (1.8-7.8); NEUTROPHILS % (AUTO) 67 % (42-75); PLATELET COUNT 261 10^3/uL (130-400); WHITE BLOOD COUNT 7.8 10^3/uL (4.3-11.0)
[2023-10-26 10:48] LABS: ALBUMIN 4.1 GM/DL (3.2-4.5); BILIRUBIN,TOTAL 0.4 MG/DL (0.1-1.0); CREATININE SERUM 0.89 MG/DL (0.60-1.30); POTASSIUM 3.6 MMOL/L (3.6-5.0); TOTAL PROTEIN 6.9 GM/DL (6.4-8.2)
== END ==
LOC: ONC 10:07
PROVIDERS: ATTEND Internal Medicine Hematology & Oncology
DX: D45 Polycythemia vera (principal); I10 Essential (primary) hypertension; I35.0 Nonrheumatic aortic (valve) stenosis; E78.2 Mixed hyperlipidemia; Z72.0 Tobacco use
CPT/HCPCS: 80053; 85025; G0463; 36415; 99214